=== PATIENT | female | born 2000 | race Caucasian/White ===

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

== ENCOUNTER 2019-02-06 03:14 | Emergency (ER) | payer OTHER ==
[~2019-02-06] VITALS: Ht 157.5 cm; Wt 63.7 kg
[~2019-02-06 03:14] MED LIST changes: +CYCLOBENZAPRINE5 MG PO
--- OUTSIDE RECORDS SUMMARY | 2019-02-06 03:16 | XMS ---
PreManage Notification: CARTER FERNANDO Security Computer Salesperson Retail Events No recent Security Events currently on file CRITERIA MET - Group Notification - [facility] - Has Care Guidelines CARE PROVIDERS JESUS MONIQUE [facility] 09/21/2018-Neha Crandall PHONE: Unknown AVIVA BOLIVAR Nurse Practitioner: Women's Health 02/17/2018-Current PHONE: [phone] ALEAH MELARA Primary Care 10/28/2016-Current PHONE: [phone] Guidelines Source: [facility] Guidelines Date: 02/19/2017 Care Coordination: ENCOURAGE PATIENT TO USE PCP FOR FOLLOW UP AND NON-EMERGENT PROBLEMS. GIVE PATIENT THIS STRAIGHTEDGE MAN NAME AND NUMBER FOR HELP OR QUESTIONS. JENNIFER FRANCIS FLIGHT ATTENDANT/INFLIGHT MANAGERQUEEN'S COUNSEL, [facility] [phone] Additional care guidelines exist for the following facilities: [facility] ( 12/06/2018 ) Care History Medical/Surgical 12/06/[address] [facility] - [facility] Case Management referral made. Patient has [employer] insurance and is utilizing the ED for mental health services. 01/19/[address] [facility] - [facility] referred patient to [facility]. Deedee the RN that runs the program can be contacted at [phone]. Care Recommendation: This patient has had 5 or more Emergency Department visits in the last 12 months.\T\nbsp; Patient requires education on the scope and purpose of the ED as an acute care provider not a Primary Care Provider and should not be utilized for chronic conditions.\T\nbsp; If patient returns to ED please contact Community Health WorkerCarlota at [phone]. These are guidelines and the provider should exercise clinical judgment when providing care. E.D. VISIT COUNT (12 MO.) 5 [facility] TOTAL 5 NOTE: Visits indicate total known visits. ED/UCC VISIT TRACKING (12 MO.) 02/06/2019 03:15 [facility] [place] TYPE: Emergency COMPLAINT: - FALL/LEFT FOOT LACERATION 12/19/2018 15:59 [facility] [place] TYPE: Emergency COMPLAINT: - ABSCESS ON BOTTOM DIAGNOSES: - Other skin changes 12/06/2018 01:13 [facility]ram[facility] [place] TYPE: Emergency [...] specified as acute or chronic - Other rn long term care (current) drug therapy - Allergy status to penicillin - Diseases of the respiratory system complicating , first trimester - Personal history of nicotine dependence - Allergy status to narcotic agent status - Bee allergy status - Vomiting, unspecified - Vomiting of , unspecified - 11 weeks gestation of INPATIENT VISIT TRACKING (12 MO.) 09/09/2018 00:03 [facility]ramanian [place] TYPE: [facility] COMPLAINT: - INDUCTION DIAGNOSES: - Diseases of [...] B carrier state complicating childbirth - Other rn long term care (current) drug therapy - Abnormality in heart rate and rhythm complicating labor and delivery - 40 weeks gestation of [email or web address]
[2019-02-06] MEDS ORDERED: AVIANE1 EACH PO (03:53)
[2019-02-06] MEDS ORDERED: NEXPLANON68 MG SUB-Q (03:54)
== END 2019-02-06 04:02 | disposition home or self-care (01) ==
LOC: ED 03:14
DX: S80.212A Abrasion, left knee, initial encounter (principal); S60.511A Abrasion of right hand, initial encounter; F31.9 Bipolar disorder, unspecified; F32.9 Major depressive disorder, single episode, unspecified; Z90.89 Acquired absence of other organs; Z88.0 Allergy status to penicillin; Z91.030 Bee allergy status; Z88.1 Allergy status to other antibiotic agents; Z88.5 Allergy status to narcotic agent; Z88.8 Allergy status to other drugs, medicaments and biological substances; W18.30XA Fall on same level, unspecified, initial encounter
CPT/HCPCS: 99283

== ENCOUNTER 2019-07-30 20:14 | Emergency (ER) | payer OTHER ==
[~2019-07-30] VITALS: Ht 157.5 cm; Wt 63.7 kg
[~2019-07-30 20:14] MED LIST changes: +AVIANE1 EACH PO; +NEXPLANON68 MG SUB-Q
== END 2019-07-30 22:16 | disposition home or self-care (01) ==
LOC: ED 20:14
DX: R11.2 Nausea with vomiting, unspecified (principal); Z88.0 Allergy status to penicillin; Z91.030 Bee allergy status; Z88.1 Allergy status to other antibiotic agents; Z88.5 Allergy status to narcotic agent; Z79.899 Other long term (current) drug therapy
CPT/HCPCS: 80053; 81001; 83735; 84703; 85025; 96361; 96374; 99284-25; J2405; J7030

== ENCOUNTER 2019-08-14 23:26 | Emergency (ER) | payer OTHER ==
[~2019-08-14] VITALS: Ht 157.5 cm; Wt 63.7 kg
--- OUTSIDE RECORDS SUMMARY | ~2019-08-14 | XMS | Encounter Summary ---
Demographics + + + | Address | [address] | | | [place] [address] | + + + | Home Phone | | + + + | Preferred Language | Unknown | + + + | Marital Status | Single | + + + | Congregation Affiliation | NRP | + + + | Race | White | + + + | Ethnic Group | Not or | + + + Author + + + | Organization | Unknown | + + + | Address | Unknown | + + + | Phone | Unavailable | + + + Support + + +---------+ + | Name | Relationship | Address | Phone | + + +---------+ + | Amparo De La Cruz | ECON | Unknown | | + + +---------+ + Care Team Providers + +------+ + | Care Or Scrub Tech Name | Role | Phone | + +------+ + | Unknown | PCP | Unavailable | + +------+ + Encounter Details +--------+--------+ + + + | Date | Type | Department | Care Team | Description | +--------+--------+ + + + | 05/09/ | Travel | | | | | 2019 | | | | | +--------+--------+ + + + Social History + +-------+ +--------+------+ | Tobacco Use | Types | Packs/Day | Years | Date | | | | | Used | | + +-------+ +--------+------+ | Never Assessed | | | | | + +-------+ +--------+------+ + +---+---+---+ | Smokeless Tobacco: | | | | | Never Used | | | | + +---+---+---+ + + +---------+ + | Alcohol Use | Drinks/Week | oz/Week | Comments | + + +---------+ + | Not Currently | | | | + + +---------+ + + + + | Sex Assigned at | Date Recorded | | | | + + + | Not on file | | + + + + + + + | Job Start Date | Occupation | Industry | + + + + | Not on file | Not on file | Not on file | + + + + + + + + | Travel History | Travel Start | Travel End | + + + + + + | No recent travel history available. | + + documented as of this encounter Plan of Treatment Not on filedocumented as of this encounter Visit Diagnoses Not on filedocumented in this encounter"
--- OUTSIDE RECORDS SUMMARY | ~2019-08-14 | XMS | Clinical Summary ---
Demographics + + + | Address | [address] | | | [place] [address] | + + + | Home Phone | | + + + | Preferred Language | Unknown | + + + | Marital Status | Single | + + + | Baptist Affiliation | Unknown | + + + | Race | Unknown | + + + | Ethnic Group | Unknown | + + + Author + + + | Author | [facility] (Historical as of | | | 04-01-19) | + + + | Organization | [facility] (Historical as of | | | 04-01-19) | + + + | Address | Unknown | + + + | Phone | Unavailable | + + + Support + + + + + | Name | Relationship | Address | Phone | + + + + + | Adelia Solano | ECON | [address] | | | | | [place], | | | | | [place] [address] | | + + + + + Care Team Providers + +------+ + | Care Social Media Campaign Manager Name | Role | Phone | + +------+ + | Apolinar Laughlin MD | PP | | + +------+ + Allergies + + + + + + | Active Allergy | Reactions | Severity | Noted | Comments | | | | | Date | | + + + + + + | Penicillins | Hives | High | 10/16/19 | | | | | | 16 | | + + + + + + Current Medications + + +-------+---------+------+------+-------+ | Prescription | Sig. | Disp. | Refills | Star | End | Statu | | | | | | t | Date | s | | | | | | Date | | | + + +-------+---------+------+------+-------+ | traMADol (ULTRAM) | Take 50 mg by mouth | | | | | Activ | | 50 MG tablet | every 6 (six) hours | | | | | e | | | as needed for Pain. | | | | | | + + +-------+---------+------+------+-------+ | albuterol | Take 1 ampule by | | | | | Activ | | (ACCUNEB) 1.25 | nebulization every 6 | | | | | e | | MG/3ML nebulizer | (six) hours as | | | | | | | solution | needed for Wheezing. | | | | | | + + +-------+---------+------+------+-------+ | ondansetron | Take 4 mg by mouth 3 | | | | | Activ | | (ZOFRAN) 4 MG tablet | (three) times daily | | | | | e | | | as needed for | | | | | | | | Nausea. | | | | | | + + +-------+---------+------+------+-------+ Active Problems Not on file Social History + +-------+ +--------+------+ | Tobacco Use | Types | Packs/Day | Years | Date | | | | | Used | | + +-------+ +--------+------+ | Never Smoker | | | | | + +-------+ +--------+------+ + + +---------+ + | Alcohol Use | Drinks/We | oz/Week | Comments | | | ek | | | + + +---------+ + | No | | | | + + +---------+ + + + + | Sex Assigned at | Date Recorded | | | | + + + | Not on file | | + + + Last Filed Vital Signs + + + + | Vital Sign | Reading | Time Taken | + + + + | Blood Pressure | 109/74 | 10/16/2015 3:26 PM PST | + + + + | Pulse | 89 | 10/16/2015 3:26 PM PST | + + + + | Temperature | 36.2 C (97.2 F) | 10/16/2015 1:24 PM PST | + + + + | Respiratory Rate | 18 | 10/16/2015 3:26 PM PST | + + + + | Oxygen Saturation | 99% | 10/16/2015 3:26 PM PST | + + + + | Inhaled Oxygen | - | - | | Concentration | | | + + + + | Weight | 59.2 kg (130 lb 8.2 | 10/16/2015 1:24 PM PST | | | oz) | | + + + + | Height | - | - | + + + + | Body Mass Index | - | - | + + + + Plan of Treatment Not on file Results Not on filefrom Last 3 Months Insurance + +--------+ +------+-------+ + | Payer | Benefi | Subscriber | Type | Phone | Address | | | t Plan | ID | | | | | | / | | | | | | | Group | | | | | + +--------+ +------+-------+ + | MEDICAID | MEDICA | [id number] | | | [address] | | | ID | | | | [place], [place] | | | [place] | | | | [address] | + +--------+ +------+-------+ + + +--------+ +--------+ + + | Guarantor Name | Accoun | Relation to | Date | Phone | Billing Address | | | t Type | Patient | of | | | | | | | | | | + +--------+ +--------+ + + | ADELIA SOLANO | Person | Mother | [birth year] | Work: | [address] | | | al/Deven | | 1973 | [phone] | [place] | | | josé miguel | | | [address]: | [address] | | | | | | | | | | | | | [phone] | | | | | | | [phone] | | + +--------+ +--------+ + +"
--- OUTSIDE RECORDS SUMMARY | ~2019-08-14 | XMS | Clinical Summary ---
Demographics + + + | Address | [address] | | | [place] [address] | + + + | Home Phone | | + + + | Preferred Language | Unknown | + + + | Marital Status | Single | + + + | Yazdanism Affiliation | Unknown | + + + | Race | Unknown | + + + | Ethnic Group | Unknown | + + + Author + + + | Author | [employer] [facility] (Historical as of | | | 04-01-19) | + + + | Organization | [facility] (Historical as of | | | 04-01-19) [...] [place], | | | | | [place] [address] | | + + + + + Care Team Providers + +------+ + | Care Pelletising Extruder Operator Name | Role | Phone | + [...] +------+-------+ + | MEDICAID | MEDICA | [id number] | | | [address] | | | ID | | | | [place], [place] | | | [place] | | | | [address] | + +--------+ +------+-------+ + + +--------+ [...] | | al/Deven | | 1973 | [phone] | [place] | | | josé miguel | | | [address]: | [address] | | | | | | | | | | | | | [phone] | | | | | | | [phone] | | + +--------+ +--------+ + +"
--- OUTSIDE RECORDS SUMMARY | ~2019-08-14 | XMS | Encounter Summary ---
Demographics + + + | Address | [address] | | | [place] [address] | + + + | Home Phone | | + + + | Preferred Language | Unknown | + + + | Marital Status | Single | + + + | Cheondoism Affiliation | Unknown | + + + | Race | Unknown | + + + | Ethnic Group | Unknown | + + + Author + + + | Author | [facility] | | | and [place] | + + + | Organization | [facility] | | | and [place] | + + + | Address | Unknown | + + + | Phone | Unavailable | + + + Support + + +---------+ + | Name | Relationship | Address | Phone | + + +---------+ + | Amparo Dorothy | ECON | Unknown | | + + +---------+ + Care Team Providers + +------+ + | Care Belt And Link Assembly Supervisor Name | Role | Phone | + +------+ + PCP | Unavailable | + +------+ + Encounter Details +--------+ + + + + | Date | Type | Department | Care Team | Description | +--------+ + + + + | 10/15/ | Emergency | [facility] | Raúl Kulkarni, | Chronic pelvic pain | | 2016 | | [facility] | [address] | in female; Left | | | | EMERGENCY CENTER | [place], [place] | ovarian cyst | | | | [address] | [address] | | | | | [facility] [place] | | | | | | [address] | | | | | | [phone] | | | +--------+ + + + [...] | + +--------+ + + + | US PELVIS | Routin | 10/16/2015 | | Results for this | | TRANSABDOMINAL | e | 3:09 PM | | procedure are in the | | | | PST | | results section. | + +--------+ + + + | URINALYSIS, REFLEX | Routin | 10/16/2015 | | Results for this | | MICROSCOPIC AND/OR | e | 2:03 PM | | procedure are in the | | CULTURE | | PST | | results section. | + +--------+ + + + documented in this encounter Results US Pelvis Transabdominal (10/16/2015 3:09 PM PST) + + | Specimen | + + | | + + + + + | Impressions | Performed At | + + + | 1. There is a simple appearing cyst of the left ovary. 2. No | | | acute process is identified involving the uterus or ovaries. | | | | | + + + + + + | Narrative | Performed At | + + + | [facility] 1999 US PELVIS TRANSABDOMINAL 10/16/2015 | | | 3:09 PM HISTORY: Pelvic pain with history of ovarian cysts, left | | | lower quadrant COMPARISON: None. TECHNIQUE: Transabdominal | | | pelvic ultrasound performed, grayscale and color flow evaluation. | | | FINDINGS: The bladder has a normal morphology. No focal bladder wall | | | thickening is present. The uterus appears mildly anteverted in | | | position measuring 7.1 x 3.1 x 4.2 cm. No abnormal vascularity of the | | | endometrial complex is noted which measures 8.3 mm in thickness. The | | | right ovary measures 2.4 x 1.9 x 3.6 cm. Normal arterial and venous | | | waveforms are documented. The left ovary measures 2.5 x 4.4 x 4.1 cm. | | | Normal arterial and venous waveforms are seen in the left ovary. There | | | is a round anechoic appearing structure within the left ovary | | | probably reflective of a simple cyst which requires no further | | | follow-up. There is no free fluid in the pelvis. | | + + + + + | Procedure Note | + + | Gary, Rad Conversion - 03/30/2019 5:46 PM PDT [facility] NESS1999US PELVIS | | TRANSABDOMINAL10/16/2015 3:09 PM HISTORY: Pelvic pain with history of ovarian cysts, left | | lower quadrant COMPARISON: None. TECHNIQUE: Transabdominal pelvic ultrasound performed, | | grayscale and color flow evaluation. FINDINGS: The bladder has a normal morphology. No | | focal bladder wall thickening is present. The uterus appears mildly anteverted in | | position measuring 7.1 x 3.1 x 4.2 cm. No abnormal vascularity of the endometrial | | complex is noted which measures 8.3 mm in thickness. The right ovary measures 2.4 x 1.9 | | x 3.6 cm. Normal arterial and venous waveforms are documented. The left ovary measures | | 2.5 x 4.4 x 4.1 cm. Normal arterial and venous waveforms are seen in the left ovary. | | There is a round anechoic appearing structure within the left ovary probably reflective | | of a simple cyst which requires no further follow-up. There is no free fluid in the | | pelvis. IMPRESSION: 1. There is a simple appearing cyst of the left ovary.2. No acute | | process is identified involving the uterus or ovaries. | |appearing structure within the left ovary probably reflective of a simple cyst which requir es no further follow-up. There is no free fluid in the pelvis. | | | |IMPRESSION: | |1. There is a simple appearing cyst of the left ovary. | |2. No acute process is identified involving the uterus or ovaries. | | | | | + + Urinalysis, Reflex Microscopic and/or Culture (10/16/2015 2:03 PM PST) + + + + + + | Component | Value | Ref Range | Performed | Pathologist | | | | | At | Signature | + + + + + + | Color | STRAWComment: Testing | | EXTERNAL | | | | performed at [facility];[address] | | LAB | | | | [address];[place] | | | | | | [address] | | | | + + + + + + | Clarity | CLEARComment: Testing | | EXTERNAL | | | | performed at [facility];[address] | | LAB | | | | [address];[place] | | | | | | [address] | | | | + + + + + + | Specific | 1.008Comment: Testing | 1.002 - 1.030 | EXTERNAL | | | [place] | performed at [facility];[address] | | LAB | | | | [address];[place] | | | | | | [address] | | | | + + + + + + | Leukocyte | NEGATIVEComment: Testing | | EXTERNAL | | | Esterase, | performed at [facility];[address] | | LAB | | | Urine | [address];[place] | | | | | | [address] | | | | + + + + + + | Nitrite, | NEGATIVEComment: Testing | | EXTERNAL | | | Urine | performed at [facility];[address] | | LAB | | | | [address];[place] | | | | | | [address] | | | | + + + + + + | Urobilinoge | NORMALComment: Testing | mg/dL | EXTERNAL | | | n, Urine | performed at [facility];[address] | | LAB | | | | [address];[place] | | | | | | [address] | | | | + + + + + + | Protein, | NEGATIVEComment: Testing | mg/dL | EXTERNAL | | | Urine | performed at [facility];[address] | | LAB | | | | [address];[place] | | | | | | [address] | | | | + + + + + + | pH, Urine | 6.0Comment: Testing | 5.0 - 8.0 | EXTERNAL | | | | performed at [facility];[address] | | LAB | | | | [address];[place] | | | | | | [address] | | | | + + + + + + | Blood, | MODERATE (A)Comment: | | EXTERNAL | | | Urine | Testing performed at | | LAB | | | | [facility];[address];[place] [address] | | | | + + + + + + | Ketones | NEGATIVEComment: Testing | mg/dL | EXTERNAL | | | | performed at [facility];[address] | | LAB | | | | [address];[place] | | | | | | [address] | | | | + + + + + + | Bilirubin, | NEGATIVEComment: Testing | | EXTERNAL | | | Urine | performed at [facility];[address] | | LAB | | | | [address];[place] | | | | | | [address] | | | | + + + + + + | Glucose, | NEGATIVEComment: Testing | mg/dL | EXTERNAL | | | Urine | performed at [facility];[address] | | LAB | | | | [address];[place] | | | | | | [address] | | | | + + + + + + | WBC, UA | NONE SEENComment: | 0 - 5 /hpf | EXTERNAL | | | | Testing performed at | | LAB | | | | [facility];[address];[place] [address] | | | | + + + + + + | RBC, UA | 3-5Comment: Testing | 0 - 5 /hpf | EXTERNAL | | | | performed at [facility];[address] | | LAB | | | | [address];[place] | | | | | | [address] | | | | + + + + + + | Bacteria, | 1+ (A)Comment: Testing | | EXTERNAL | | | UA | performed at [facility];[address] | | LAB | | | | [address];[place] | | | | | | [address] | | | | + + + + + + | Epithelial | 3-5Comment: Testing | /lpf | EXTERNAL | | | Cells | performed at [facility];[address] | | LAB | | | | [address];[place] | | | | | | [address] | | | | + + + + + + | MUCUS UA | 1+Comment: Testing | | EXTERNAL | | | | performed at [facility] | | LAB | | | | [address];[place] | | | | | | [address] | | | | + + + + + + + + | Specimen | + + | | + + + +---------+ + + | Performing | Address | City/State/Zipcode | Phone Number | | Organization | | | | + +---------+ + + | EXTERNAL LAB | | | | + +---------+ + + documented in this encounter Visit Diagnoses + + | Diagnosis | + + | Chronic pelvic pain in female Unspecified symptom associated with female genital | | organs | + + | Left ovarian cyst Other and unspecified ovarian cyst | + + documented in this encounter"
--- OUTSIDE RECORDS SUMMARY | ~2019-08-14 | XMS | Encounter Summary ---
Demographics + + + | Address | [address] | | | [place] [address] | + + + | Home Phone | | + + + | Preferred Language | Unknown | + + + | Marital Status | Single | + + + | Holiness Affiliation | NRP | + + + [...] Team Providers + +------+ + | Care Brewery Pumper Name | Role | Phone | + [...]
--- OUTSIDE RECORDS SUMMARY | ~2019-08-14 | XMS | Encounter Summary ---
Demographics + + + | Address | [address] | | | [place] [address] | + + + | Home Phone | | + + + | Preferred Language | Unknown | + + + | Marital Status | Single | + + + | Jainism Affiliation | Unknown | + + + | Race | Unknown | + + + | Ethnic Group | Unknown | + + + Author + + + | Author | [facility] | | | and [place] | + + + | Organization | [facility] | | | and [...] Team Providers + +------+ + | Care Powder Expert Name | Role | Phone | [...] | | | [address] | [address] | | | | | [facility] [place] | | | | | | [address] | | | | | | [phone] | | | +--------+ + + + [...] EXTERNAL | | | | performed at [facility];[address] | | LAB | | | | [address];[place] | | | | | | [address] | | | | + + + + + + | Clarity | CLEARComment: Testing | | EXTERNAL | | | | performed at [facility];[address] | | LAB | | | | [address];[place] | | | | | | [address] | | | | + + + + + + | Specific | 1.008Comment: Testing | 1.002 - 1.030 | EXTERNAL | | | [place] | performed at [facility];[address] | | LAB | | | | [address];[place] | | | | | | [address] | | | | + + + + + + | Leukocyte | NEGATIVEComment: Testing | | EXTERNAL | | | Esterase, | performed at [facility];[address] | | LAB | | | Urine | [address];[place] | | | | | | [address] | | | | + + + + + + | Nitrite, | NEGATIVEComment: Testing | | EXTERNAL | | | Urine | performed at [facility];[address] | | LAB | | | | [address];[place] | | | | | | [address] | | | | + + + + + + | Urobilinoge | NORMALComment: Testing | mg/dL | EXTERNAL | | | n, Urine | performed at [facility];[address] | | LAB | | | | [address];[place] | | | | | | [address] | | | | + + + + + + | Protein, | NEGATIVEComment: Testing | mg/dL | EXTERNAL | | | Urine | performed at [facility];[address] | | LAB | | | | [address];[place] | | | | | | [address] | | | | + + + + + + | pH, Urine | 6.0Comment: Testing | 5.0 - 8.0 | EXTERNAL | | | | performed at [facility];[address] | | LAB | | | | [address];[place] | | | | | | [address] | | | | + + + + + + | Blood, | MODERATE (A)Comment: | | EXTERNAL | | | Urine | Testing performed at | | LAB | | | | [facility];[address];[place] [address] | | | | + + + + + + | Ketones | NEGATIVEComment: Testing | mg/dL | EXTERNAL | | | | performed at [facility];[address] | | LAB | | | | [address];[place] | | | | | | [address] | | | | + + + + + + | Bilirubin, | NEGATIVEComment: Testing | | EXTERNAL | | | Urine | performed at [facility];[address] | | LAB | | | | [address];[place] | | | | | | [address] | | | | + + + + + + | Glucose, | NEGATIVEComment: Testing | mg/dL | EXTERNAL | | | Urine | performed at [facility];[address] | | LAB | | | | [address];[place] | | | | | | [address] | | | | + + + + + + | WBC, UA | NONE SEENComment: | 0 - 5 /hpf | EXTERNAL | | | | Testing performed at | | LAB | | | | [facility];[address];[place] [address] | | | | + + + + + + | RBC, UA | 3-5Comment: Testing | 0 - 5 /hpf | EXTERNAL | | | | performed at [facility];[address] | | LAB | | | | [address];[place] | | | | | | [address] | | | | + + + + + + | Bacteria, | 1+ (A)Comment: Testing | | EXTERNAL | | | UA | performed at [facility];[address] | | LAB | | | | [address];[place] | | | | | | [address] | | | | + + + + + + | Epithelial | 3-5Comment: Testing | /lpf | EXTERNAL | | | Cells | performed at [facility];[address] | | LAB | | | | [address];[place] | | | | | | [address] | | | | + + + + + + | MUCUS UA | 1+Comment: Testing | | EXTERNAL | | | | performed at [facility] | | LAB | | | | [address];[place] | | | | | | [address] | | | | + + + [...]
--- OUTSIDE RECORDS SUMMARY | ~2019-08-14 | XMS | Encounter Summary ---
Demographics + + + | Address | [address] | | | [place] [address] | + + + | Home Phone | | + + + | Preferred Language | Unknown | + + + | Marital Status | Single | + + + | Synagogue Affiliation | NRP | + + + | Race | White | + + + | Ethnic Group | Not or | + + + Author + + + | Author | [facility] | + + + | Organization | [facility] | + + + | Address | Unknown | + + + | Phone | Unavailable | + + + Support + + +---------+ + | Name | Relationship | Address | Phone | + + +---------+ + | Amparo De La Cruz | ECON | Unknown | | + + +---------+ + Care Team Providers + +------+ + | Care Policy Services Representative Name | Role | Phone | + [...] + + | 05/09/ | Emergency | [facility] Emergency | Reanna Tracey, | | | 2018 | | Department [address] | MD [address] [facility] | | | | | [facility] | [facility] | | | | | [facility] | [place], [place] | | | | | [place], [place] | [address] | | | | | [address] | [phone] | | | | | [phone] | | | +--------+ + + + [...] Discharge Instructions Instructions Floyd Aldrich MD - 05/09/2019You were seen in the ER after an [...] in the ER. The number for the [facility] Intensive Care Unit Ergonomist is [phone] documented in this encounter Plan of Treatment [...] At | + + + | COLLECTIVE?NOTIFICATION?05/09/2019 19:11?ROSE FERNANDO?MRN: | COLLECTIVE | | [id number] Criteria Met 5 Visits In 12 Months Has | MEDICAL | | Guidelines Security and Safety No recent Security Events | [employer] | | currently on file ED Care Guidelines from [facility] | | | Last Updated: 12/06/18 1:12 PM Care Coordination: Currently | | | engaged in mental health services with [employer].? Please contact | | | [employer] for mental health concerns.? [place] office: [phone]. | | | These are guidelines and the provider should exercise clinical | | | judgment when providing care. Care History Medical/Surgical | | | 02/08/19 12:00 AM [facility] PER DONTE AT | | | [facility] CASE MANAGEMENT-PATIENT HAS MET GOALS WITH THEM AND IS BEING | | | CASE MANAGED BY RENU CARE TEAM INSPECTOR RUBBER STAMP DIE. 12/06/18 | | | 12:00 AM [facility] | | | referral made. [facility] and is utilizing the ED | | | for mental health services. 01/19/18 12:00 AM [facility] | | | Hospital CHW referred patient to Todd Mariam Nurse | | | Partnership Program. Deedee the RN that runs the program can be | | | contacted at [phone]. Care Recommendation: This patient has | | [...] | | contact Community Health WorkerCarlota at [phone]. These are | | | guidelines and the provider should exercise clinical judgment when | | | providing care. Prescription Drug Report (12 Mo.) Rx Details | | | Fill Date Drug Description Qty. Prescriber MED 2018-09-13 | | | OXYCODONE-ACETAMINOPHEN 5-325 JESUS MONIQUE M.D. 2 30 Rx | | | Summary Metric Count CS II-V Rx 1 CS-II Rx 1 Quantity Dispensed | | | 28 Unique Prescribers 1 [facility] Pharm[facility] 1 Benzos 0 Opioids | | | 1 Long Acting Opioids 0 E.D. Visit Count (12 mo.) | | | Facility Visits [facility] [address] | | | [place] [address] Total 5 Note: Visits indicate total known | | | visits. Recent Emergency Department Visit Summary Date | | | Facility City State Type Diagnoses or Chief Complaint May 09, 2019 | | | [facility] [place] Emergency | | | 10,800. Back Pain 18,400. Abrasion of unspecified back wall of | | | thorax, initial encounter Feb 06, 2019 [facility] [place] | | | [place] Emergency [...] encounter December 19, | | | 2018 [facility] [place] Emergency Other skin changes | | | Dec 06, 2018 [facility] [place] Emergency | | | [...] | | | Sep 20, 2018 [facility] [place] Emergency | | | [...] Diagnoses or Chief Complaint [facility] 09, [facility] [place] [facility] 40 weeks gestation of | | | Abnormality in heart rate and rhythm complicating labor and | | | delivery Other immediate hemorrhage | | | Streptococcus B carrier state complicating Maternal | | | care for high head at term, not applicable or unspecified Single | | | live Post-traumatic stress disorder, unspecified | | | Other halfway (current) drug therapy Streptococcus B carrier | [...] 17, | | | 2018 - Current [facility] Portal This patient has registered | | | at the [facility] [place] [facility] | | | For more information visit: | | | [email or web address] | | | [email or web address] PLEASE NOTE: 1. Any care recommendations [...] or completeness of information provided. ? 2019 [employer] | | | [facility]. - [email or web address] | | + + + + + | Procedure Note | + + | Service Account, Rtf Results Inbound - 05/09/2019 8:06 PM PDT Formatting of this | | note might be different from the original.COLLECTIVE?NOTIFICATION?05/09/2019 | | 19:11?ROSE FERNANDO? Met 5 Visits In 12 Months Has | | GuidelinesSecurity and SafetyNo recent Security Events currently on fileED Care | | Guidelines from [employer] - Mara Updated: 12/06/18 1:12 PM Care | | Coordination:Currently engaged in mental health services with [employer].? Please contact | | [employer] for mental health concerns.? [place] office: [phone].These are | | guidelines and the provider should exercise clinical judgment when providing care.Care | | HistoryMedical/Surgical02/08/19 12:00 AM [facility] | | CASE MANAGEMENT-PATIENT HAS MET GOALS WITH THEM AND IS BEING CASE MANAGED BY HETAL AND | | RY CARE TEAM INSPECTOR RUBBER STAMP DIE.12/06/18 12:00 AM [facility] Case | | Management referral made. Patient has [facility] insurance and is utilizing the ED for mental | | health services.01/19/18 12:00 AM [facility] CHW referred patient to | | Leena Becerra Nurse Partnership Program. Deedee the RN that runs the program can be | | contacted at [phone].Care Recommendation:This patient has had 5 or more Emergency | | Department visits in the last 12 months.? Patient requires education on the scope and | | purpose of the ED as an acute care provider not a Primary Care Provider and should not | | be utilized for chronic conditions.?If patient returns to ED please contact Community | | Health WorkerCarlota at [phone].These are guidelines and the provider should | [...] 0 E.D. Visit Count (12 mo.)Facility Visits [place] | | [facility] 1 [facility] 4 Total 5 Note: Visits | | indicate total known visits. Recent Emergency Department Visit SummaryDate Facility | | City State Type Diagnoses or Chief Complaint May 09, 2019 [facility] | | [place] Emergency 10,800. Back Pain 18,400. Abrasion of unspecified | | back wall of thorax, initial encounter Feb 06, 2019 [facility] [place] | | Emergency Major [...] lower leg, initial encounter December 19, [address] [facility] [address] | | [place] Emergency Other skin changes Dec 06, 2018 [facility] [place] Emergency Allergy status to penicillin Acquired absence of other organs | | Allergy status to narcotic agent status Unspecified asthma, uncomplicated | | Post-traumatic stress disorder, unspecified Other insect allergy status Panic | | disorder [episodic paroxysmal anxiety] Other allergy status, other than to drugs and | | biological substances Bipolar disorder, unspecified Sep 20, 2018 [facility] [place] Emergency Allergy [...] Diagnoses or Chief Complaint Sep 09, 2018 [facility] [place] [facility] 40 weeks gestation of Abnormality in | | heart rate and rhythm complicating labor and delivery Other immediate | | hemorrhage Streptococcus B carrier state complicating Maternal care for | | high head at term, not applicable or unspecified Single live Post-traumatic | | stress disorder, unspecified Other joint terminal attack controller (current) drug therapy Streptococcus | | B carrier state complicating childbirth Other mental disorders complicating | | childbirth Care TeamProvider Specialty Phone Fax Service Dates JESUS MONIQUE, | | Neha LOERA M.D. Corner Brace Block Machine Operator Sep 21, 2018 - Current AVIVA BOLIVAR, NP- | | Nurse Practitioner: Women's Health Feb 17, 2018 - Current | | [employer]enoOneThis patient has registered at the [facility] [place] | | Emergency Department For more information visit: | | [email or web address] PLEASE | | NOTE: 1. Any care [...] to the | | limitations of applicable KnowRe Policies. 3. You should consult directly with | | the organization that provided a care guideline or other clinical history with any | | questions about additional information or accuracy or completeness of information | | provided.? 2019 [employer] - [email or web address] | | | |Feb 06, 2019 [facility] [place] Emergency | | Major depressive disorder, [...] | | | |December 19, 2018 [facility] [place] Emergency | | Other skin changes | | | |Dec 06, 2018 [facility] [place] Emergency | | Allergy [...] unspecified | | | |Sep 20, 2018 [facility] [place] Emergency | | Allergy [...] or Chief Complaint | |Sep 09, 2018 [facility] [place] [facility] | | 40 weeks gestation of | | Abnormality in heart rate and rhythm complicating labor and delivery | | Other immediate hemorrhage | | Streptococcus B carrier state complicating | | Maternal care for high head at term, not applicable or unspecified | | Single live | | Post-traumatic stress disorder, unspecified | | Other joint terminal attack controller (current) drug therapy | | Streptococcus B carrier state complicating childbirth | | Other mental disorders complicating childbirth | | | | | | | |Care Team | |Provider Specialty Phone Fax Service Dates | |JESUS MONIQUE M.D. JOHN, M.D. Corner Brace Block Machine Operator Sep 21, 2018 - Current | |AVIVA BOLIVAR, KATTY- Nurse Practitioner: Women's Health Feb 17, 2018 - Current | | | |KnowRe Portal | |This patient has registered at the [facility] [place] [facility] t | |For more information visit: [email or web address] | |PLEASE NOTE: | | 1. Any [...] information provided. | | | |? 2019 [employer]. - [email or web address] | + + + + + + + | Performing | Address | City/State/Zipcode | Phone Number | | Organization | | | | + + + + + | [facility] | [address], | [place], [place] | [phone] | | [employer] | [address] | [address] | | + + + + + documented in this encounter Visit Diagnoses + + | Diagnosis | + + | Abrasion of back, unspecified laterality, initial encounter - Primary | + + documented in this encounter"
--- OUTSIDE RECORDS SUMMARY | ~2019-08-14 | XMS | Clinical Summary ---
Demographics + + + | Address | [address] | | | [place] [address] | + + + | Home Phone | | + + + | Preferred Language | Unknown | + + + | Marital Status | Single | + + + | Buddhist Affiliation | NRP | + + + | Race | White | + + + | Ethnic Group | Not or | + + + Author + + + | Author | [facility] | + + + | Organization | [facility] | + + + | Address | Unknown | + + + | Phone | Unavailable | + + + Support + + +---------+ + | Name | Relationship | Address | Phone | + + +---------+ + | Amparo De La Cruz | ECON | Unknown | | + + +---------+ + Care Team Providers + +------+ + | Care Machine Operator Helper Name | Role | Phone | + +------+ + | Unknown | PCP | Unavailable | + +------+ + Source Comments ZENOBIA is fully live on both [facility] Ambulatory and [facility] InPatient.[facility] Allergies + + + + + + | Active Allergy | Reactions | Severity | Noted | Comments | | | | | Date | | + + + + + + | Penicillin | Rash | | 05/09/20 | | | | | | 19 | | + + + + + + Medications No known medications Active Problems Not on file Social History [...] recent travel history available. | + + Last Filed Vital Signs + [...] filefrom Last 3 Months Insurance + +--------+ +--------+-------+---------+--------+ | Payer | Benefi | Subscriber | Effect | Phone | Address | Type | | | t Plan | ID | julio | | | | | | / | | Dates | | | | | | Group | | | | | | + +--------+ +--------+-------+---------+--------+ | BI TECHNICAL LEAD MEDICAID | BI TECHNICAL LEAD | xxxxxxxx | Effect | | | Medica | | | [place] | | julio | | | id | | | [place] | | for | | | | | | | | all | | | | | | | | dates | | | | + +--------+ +--------+-------+---------+--------+ + +--------+ +--------+ + + | Guarantor Name | Accoun | Relation to | Date | Phone | Billing Address | | | t Type | Patient | of | | | | | | | | | | + +--------+ +--------+ + + | Rose Marrufo | Person | Self [birth year] | [address] | | | al/Fam | | 2001 | [phone] | [place] | | | josé miguel | | | [address] (Home) | [phone] | + +--------+ +--------+ + +"
--- OUTSIDE RECORDS SUMMARY | ~2019-08-14 | XMS | Clinical Summary ---
Demographics + + + | Address | [address] | | | [place] [address] | + + + | Home Phone | | + + + | Preferred Language | Unknown | + + + | Marital Status | Single | + + + | Baptism Affiliation [...] Team Providers + +------+ + | Care Piper Helper Name | Role | Phone | + +------+ + | Unknown | PCP | Unavailable | + +------+ + Source Comments ZENOBIA is fully live on both [facility] and [facility] InPatient.[facility] Allergies + + + + + + [...] | | | + +--------+ +--------+-------+---------+--------+ | EKG/ECG TECHNICIAN MEDICAID | EKG/ECG TECHNICIAN | xxxxxxxx | Effect | | | [...] mig[place] | | | [address] (Home) | [id number] | + +--------+ +--------+ + +"
--- OUTSIDE RECORDS SUMMARY | ~2019-08-14 | XMS | Clinical Summary ---
Demographics + + + | Address | [address] | | | [place] [address] | + + + | Home Phone | | + + + | Preferred Language | Unknown | + + + | Marital Status | Single | + + + | Mormon Affiliation | Unknown | + + + | Race | Unknown | + + + | Ethnic Group | Unknown | + + + Author + + + | Author | [facility] | | | and [place] | + + + | Organization | [facility] | | | and [...] Team Providers + +------+ + | Care Liquor Merchant Name | Role | Phone | + [...] + + Plan of Treatment + + + + + | Health Maintenance | Due Date | Last Done | Comments | + + + + + | Well Child Check | | | | | | 3 | | | + + + + + | Vaccine: | | | | | Dtap/Tdap/Td (1 - | 1 | | | | Tdap) | | | | + + + + + | Vaccine: HPV (1 - | | | | | Female 2-dose | 1 | | | | series) | | | | + + + + + | Vaccine: Influenza | | | | | (#1) | 9 | | | + + + + + Results Not on filefrom Last 3 Months"
--- OUTSIDE RECORDS SUMMARY | ~2019-08-14 | XMS | Clinical Summary ---
Demographics + + + | Address | [address] | | | [place] [address] | + + + | Home Phone | | + + + | Preferred Language | Unknown | + + + | Marital Status | Single | + + + | Rastafari Affiliation | Unknown | + + + [...] Team Providers + +------+ + | Care Emergency Department Rn Name | Role | Phone | + [...]
--- OUTSIDE RECORDS SUMMARY | ~2019-08-14 | XMS | Encounter Summary ---
Demographics + + + | Address | [address] | | | [place] [address] | + + + | Home Phone | | + + + | Preferred Language | Unknown | + + + | Marital Status | Single | + + + | Rastafarian Affiliation | NRP | + + + | Race | White | + + + | Ethnic Group | Not or | + + + Author + + + | Author | [facility] | + + + | Organization | [facility] | + + + | Address | Unknown | + + + | Phone | Unavailable | + + + Support + + +---------+ + | Name | Relationship | Address | Phone | + + +---------+ + | Amparo De La Cruz | ECON | Unknown | | + + +---------+ + Care Team Providers + +------+ + | Care Recreation Assistant Name | Role | Phone | [...] + + | 05/09/ | Emergency | [facility] Emergency | Reanna Tracey, | | | 2018 | | Department [address] | MD [address] [facility] | | | | | [facility] | [facility] | | | | | [facility] | [place], [place] | | | | | [place], [place] | [address] | | | | | [address] | [phone] | | | | | [phone] | | | +--------+ + + + [...] the [facility] Intensive Care Unit Space Controller is [phone] documented in this encounter Plan of Treatment [...] COLLECTIVE?NOTIFICATION?05/09/2019 19:11?ROSE FERNANDO?MRN: | COLLECTIVE | | [id number] Criteria Met 5 Visits In 12 Months Has | MEDICAL | | Guidelines Security and Safety No recent Security Events | TECH[employer]OLOGIES | | currently on file ED Care Guidelines from [facility] | | | Last Updated: 12/06/18 1:12 PM Care Coordination: Currently | | | engaged in mental health services with [employer].? Please contact | | | [employer] for mental health concerns.? [place] office: [phone]. | | | These are guidelines and the provider should exercise clinical | | | judgment when providing care. Care History Medical/Surgical | | | 02/08/19 12:[address] [facility] PER DONTE AT | | | [facility] CASE MANAGEMENT-PATIENT HAS MET GOALS WITH THEM AND IS BEING | | | CASE MANAGED BY [employer] C[employer] TEAM MANUFACTURING TECHNOLOGY ANALYST. 12/06/18 | | | 12:[address] [facility] | | | referral made. [facility] and is utilizing the ED | | | for mental health services. 01/19/18 12:00 AM [facility] | | | Hospital [facility] referred patient to [facility] Nurse | | | Partnership Program. Deedee the RN that runs the program can be | | | contacted at [phone]. Care Recommendation: This patient has | | [...] | | contact Community Health WorkerCarlota at [phone]. These are | | | guidelines and [...] (12 mo.) | | | Facility Visits [facility] [address] | | | [place] [address] Total 5 Note: Visits indicate total known | | | visits. Recent Emergency Department Visit Summary Date | | | Facility City State Type Diagnoses or Chief Complaint May 09, 2019 | | | [facility] [place] Emergency | | | 10,800. Back Pain 18,400. Abrasion of unspecified back wall of | | | thorax, initial encounter Feb 06, 2019 [facility] [place] | | | [place] Emergency [...] encounter December 19, | | | 2018 [facility] [place] Emergency Other skin changes | | | Dec 06, 2018 [facility] [place] Emergency | | | [...] | | | Sep 20, 2018 [facility] [place] | | | [...] Diagnoses or Chief Complaint [facility] [place] [facility] [place] 40 weeks gestation of | | | Abnormality in heart rate and rhythm complicating labor and | | | delivery Other immediate hemorrhage | | | Streptococcus B carrier state complicating Maternal | | | care for high head at term, not applicable or unspecified Single | | | live Post-traumatic stress disorder, unspecified | | | Other retirement (current) drug therapy Streptococcus B carrier | [...] 17, | | | 2018 - Current [employer] This patient has registered | | | at the [facility] [place] Emergency Department | | | For more information visit: | | | [email or web address] | | | [email or web address] PLEASE NOTE: 1. Any care recommendations [...] or completeness of information provided. ? 2019 [employer] | | | [place]. - [email or web address] | | + + + + + | Procedure Note | + + | Service Account, Rtf Results Inbound - 05/09/2019 8:06 PM PDT Formatting of this | | note might be different from the original.COLLECTIVE?NOTIFICATION?05/09/2019 | | 19:11?ROSE FERNANDO? Met 5 Visits In 12 Months Has | | GuidelinesSecurity and SafetyNo recent Security Events currently on fileED Care | | Guidelines from [employer] - [place] Updated: 12/06/18 1:12 PM Care | | Coordination:Currently engaged in mental health services with [employer].? Please contact | | [employer] for mental health concerns.? [place] office: [phone].These are | | guidelines and the provider should exercise clinical judgment when providing care.Care | | HistoryMedical/Surgical02/08/19 12:[address] [facility] | | CASE MANAG[facility]-PATIENT HAS MET GOALS WITH THEM AND IS BEING CASE MANAGED BY HETAL AND | | RY CARE TEAM MANUFACTURING TECHNOLOGY ANALYST.12/06/18 12:[address] [facility] Case | | Management referral made. Patient has [facility] insurance and is utilizing the ED for mental | | health services.01/19/18 12:[address] [facility] CHW referred patient to | | [facility] Nurse Partnership Program. Deedee the RN that runs the program can be | | contacted at [phone].Care Recommendation:This patient has had 5 or more Emergency | | Department visits in the last 12 months.? Patient requires education on the scope and | | purpose of the ED as an acute care provider not a Primary Care Provider and should not | | be utilized for chronic conditions.?If patient returns to ED please contact Community | | Health WorkerCarlota at [phone].These are guidelines and the provider should | [...] 0 E.D. Visit Count (12 mo.)Facility Visits [place] | | [facility] [address] [facility] 4 Total 5 Note: Visits | | indicate total known visits. Recent Emergency Department Visit SummaryDate Facility | | City State Type Diagnoses or Chief Complaint May 09, 2019 [facility] | | [place] Emergency 10,800. Back Pain 18,400. Abrasion of unspecified | | back wall of thorax, initial encounter Feb 06, 2019 [facility] [place] | | Emergency Major [...] lower leg, initial encounter December 19, [address] [facility] [address] | | [place] Emergency Other skin changes [facility] 06, [facility] [place] [facility] Allergy status to penicillin Acquired absence of other organs | | Allergy status to narcotic agent status Unspecified asthma, uncomplicated | | Post-traumatic stress disorder, unspecified Other insect allergy status Panic | | disorder [episodic paroxysmal anxiety] Other allergy status, other than to drugs and | | biological substances Bipolar disorder, unspecified Sep 20, 2018 [facility] [place] Emergency Allergy [...] Diagnoses or Chief Complaint Sep 09, 2018 [facility] [place] [facility] 40 weeks gestation of Abnormality in | | heart rate and rhythm complicating labor and delivery Other immediate | | hemorrhage Streptococcus B carrier state complicating Maternal care for | | high head at term, not applicable or unspecified Single live Post-traumatic | | stress disorder, unspecified Other rodent exterminator (current) drug therapy Streptococcus | | B carrier state complicating childbirth Other mental disorders complicating | | childbirth Care TeamProvider Specialty Phone Fax Service Dates JESUS MONIQUE, | | Neha LOERA M.D. [employer] Sep 21, 2018 - Current AVIVA BOLIVAR, NP- | | Nurse Practitioner: Women's Health Feb 17, 2018 - Current | | [place] at the [facility] | | Emergency Department For more information visit: | | [email or web address] PLEASE | | NOTE: 1. Any care [...] to the | | limitations of applicable [employer] Policies. 3. You should consult directly with | | the organization that provided a care guideline or other clinical history with any | | questions about additional information or accuracy or completeness of information | | provided.? 2019 [employer]. - [email or web address] | | | |Feb 06, 2019 [place] [...] | | | |December 19, 2018 [facility] [place] Emergency | | Other skin changes | | | |Dec 06, 2018 [facility] [place] Emergency | | Allergy [...] unspecified | | | |Sep 20, 2018 [facility] [place] Emergency | | Allergy [...] or Chief Complaint | |Sep 09, 2018 [facility] [place] [facility] | | 40 weeks gestation of | | Abnormality in heart rate and rhythm complicating labor and delivery | | Other immediate hemorrhage | | Streptococcus B carrier state complicating | | Maternal care for high head at term, not applicable or unspecified | | Single live | | Post-traumatic stress disorder, unspecified | | Other rodent exterminator (current) drug therapy | | Streptococcus B carrier state complicating childbirth | | Other mental disorders complicating childbirth | | | | | | | |Care Team | |Provider Specialty Phone Fax Service Dates | |JESUS MONIQUE M.D. JOHN, M.D. [employer]er Sep 21, 2018 - Current | |AVIVA BOLIVAR, KATTY- Nurse Practitioner: Women's Health Feb 17, 2018 - Current | | | |[employer] Portal | |This patient has registered at the [facility] Emergency Departmen t | |For more information visit: [email or web address] | |PLEASE NOTE: | | 1. Any [...] information provided. | | | |? 2019 [employer]. - [email or web address] | + + + + + + + | Performing | Address | City/State/Zipcode | Phone Number | | Organization | | | | + + + + + | [facility] | [address], | [place], [place] | [phone] | | [employer] | [address] | [address] | | + + + + + documented in this encounter Visit Diagnoses + + | Diagnosis | + + | Abrasion of back, unspecified laterality, initial encounter - Primary | + + documented in this encounter"
== END 2019-08-15 00:56 | disposition home or self-care (01) ==
LOC: ED 23:26
DX: R42 Dizziness and giddiness (principal); F32.9 Major depressive disorder, single episode, unspecified; F41.9 Anxiety disorder, unspecified; Z88.0 Allergy status to penicillin; Z88.1 Allergy status to other antibiotic agents; Z88.5 Allergy status to narcotic agent; Z91.030 Bee allergy status; Z79.899 Other long term (current) drug therapy
CPT/HCPCS: 81001; 84703; 99284

== ENCOUNTER 2019-09-22 07:10 | Emergency (ER) | payer OTHER ==
[~2019-09-22] VITALS: Ht 157.5 cm; Wt 63.7 kg
== END 2019-09-22 07:27 | disposition home or self-care (01) ==
LOC: ED 07:10
DX: J02.9 Acute pharyngitis, unspecified (principal); Z53.20 Procedure and treatment not carried out because of patient's decision for unspecified reasons

== ENCOUNTER 2020-03-27 23:50 | Emergency (ER) | payer OTHER ==
[~2020-03-27] VITALS: Ht 157.5 cm; Wt 63.7 kg
--- OUTSIDE RECORDS SUMMARY | ~2020-03-27 | XMS | Encounter Summary ---
Demographics + + + | Address | [address] | | | [place] [address] | + + + | Home Phone | | + + + | Preferred Language | Unknown | + + + | Marital Status | | + + + | Faith Affiliation | NRP | + + + | Race | White | + + + | Ethnic Group | Not or | + + + Author + + + | Author | [facility] | + + + | Organization | [facility] | + + + | Address | Unknown | + + + | Phone | Unavailable | + + + Support + + +---------+ + | Name | Relationship | Address | Phone | + + +---------+ + | Amparo De La Cruz | ECON | Unknown | | + + +---------+ + Care Team Providers + +------+ + | Care Jail Officer Name | Role | Phone | + +------+ + | Aviva Bolivar NP | PCP | | + +------+ + Reason for Visit + + + | Reason | Comments | + + + | test | | + + + Encounter Details +--------+ + + + + | Date | Type | Department | Care Team | Description | +--------+ + + + + | 09/27/ | Emergency | [facility] Emergency | Cabrera Abbott, | | | 2020 | | Department [address] | [address] | | | | | [address] | [address] | | | | | [facility] | [place], [place] | | | | | [place], [place] | [address] | | | | | [address] | [phone] | | | | | [phone] | | | +--------+ + + + + Social History + +-------+ [...] + + documented as of this encounter Last Filed Vital Signs + + + + + | Vital Sign | Reading | Time Taken | Comments | + + + + + | Blood Pressure | 112/72 | 09/27/2019 5:20 PM | | | | | PST | | + + + + + | Pulse | 88 | 09/27/2019 5:20 PM | | | | | PST | | + + + + + | Temperature | 36.4 C (97.6 F) | 09/27/2019 5:20 PM | | | | | PST | | + + + + + | Respiratory Rate | 16 | 09/27/2019 5:20 PM | | | | | PST | | + + + + + | Oxygen Saturation | 100% | 09/27/2019 5:20 PM | | | | | PST | | + + + + + | Inhaled Oxygen | - | - | | | Concentration | | | | + + + + + | Weight | - | - | | + + + + + | Height | - | - | | + + + + + | Body Mass Index | - | - | | + + + + + documented in this encounter Discharge Instructions Instructions Cabrera Abbott MD - 09/27/2019You were seen today requesting test. We sent a blood test, it is not back yet, you will get a call back later with the results. In the future, consider using a urine test, these are a dollar and can be bought at the [employer] store. If it is negative and you were concerned it is a false negative test, you can wait 2 days to see if it is definitively negative or actually turns positive. AttachmentsThe following attachments cannot be sent through Care Everywhere.: Gene ral Info (Slovenian)documented in this encounter Plan of Treatment Not on filedocumented as of this encounter Procedures + +--------+ + + + | Procedure Name | Priori | Date/Time | Associated Diagnosis | Comments | | | ty | | | | + +--------+ + + + | HCG BETA QUANT, | Urgent | 09/27/2019 | | Results for this | | PLASMA | | 5:39 PM | | procedure are in the | | | | PST | | results section. | + +--------+ + + + | ED INFORMATION | Routin | 09/27/2019 | | Results for this | | EXCHANGE | e | 4:46 PM | | procedure are in the | | | | PST | | results section. | + +--------+ + + + documented in this encounter Results HCG BETA QUANT, PLASMA (09/27/2019 5:39 PM PST) + +-------+ + + + | Component | Value | Ref Range | Performed | Pathologist | | | | | At | Signature | + +-------+ + + + | HCG BETA, | <1 | No reference | [facility] | | | PLASMA | | ranges have | LABORATORY | | | | | been | SERVICES, | | | | | established | CORE | | | | | mIU/mL | | | + +-------+ + + + + + | Specimen | + + | Blood - Blood | | (substance) | + + + + + | Narrative | Performed At | + + + | HCG Reference ranges Males: <2 | [facility] | | mIU/mL Non- Females: <3 mIU/mL | LABORATORY | | Females: >5 mIU/mL HCG Ranges During Normal | SERVICES, CORE | | : Weeks Post Last Menstrual Period: Approximate hCG | | | Range, mIU/mL 3-4 weeks | | | 9 - 130 4-5 weeks | | | 75 - 2600 5-6 weeks | | | 850 - 99276 6-7 weeks | | | 4000 - 701750 7-12 weeks | | | 70172 - 776666 12-16 weeks | | | 08385 - 920081 16-29 | | | weeks 1400 - 73536 | | | 29-41 weeks 940 - 37934 | | | This test has not been approved for use as a tumor marker in | | | males or females. | | + + + + + + + + | Performing | Address | City/State/Zipcode | Phone Number | | Organization | | | | + + + + + | [employer] | [address] | [place] [address] | | | SERVICES, CORE | [address] | | | + + + + + ED INFORMATION EXCHANGE (09/27/2019 4:46 PM PST) + + | Specimen | + + | | + + + + + | Narrative | Performed At | + + + | COLLECTIVE?NOTIFICATION?09/27/2019 16:45?ROSE FERNANDO?MRN: | COLLECTIVE | | [id number] Criteria Met 5 Visits In 12 Months Has | MEDICAL | | Guidelines Security and Safety No recent Security Events | [employer]OLOG[employer] | | currently on file ED Care Guidelines from [facility] [place] | | | Last Updated: 12/06/18 1:12 PM Care Coordination: Currently | | | engaged in mental health services with [facility].? Please contact | | | [facility] for mental health concerns.? [place] office: [phone]. | | | These are guidelines and the provider should exercise clinical | | | judgment when providing care. Care History Medical/Surgical | | | 08/15/19 12:00 AM [facility] Patient was seen outside | | | of walk in clinic hours.? Advised patient to follow up with PCP | | | Aviva Bolivar, patient agreed.? Has annual?WNC?exam with | | | Devendra on 10/25/2019 Flags [place] Disparity [place] - | | | [place]) to help | | | support Medicaid members with mental illness. [facility] | | | Authority uses claims data with a 36-month rolling look back period | | | to identify members who have had two or more diagnoses of mental | | | illness (does not need to be primary) in any setting (e.g. ED, | | | Inpatient, primary care). Flagged members are included in the ED | | | Disparity Measure denominator population. Flags are updated weekly. | | | / Attributed By: [place] [facility] ([facility]) / Attributed On: | | | 08/29/2019 Prescription Drug Report (12 Mo.) PDMP query found | | | no report. E.D. Visit Count (12 mo.) Facility Visits [place] | | | [facility] 2 [facility] 6 Total | | | 8 Note: Visits indicate total known visits. Recent Emergency | | | Department Visit Summary Date Facility City State Type Diagnoses or | | | Chief Complaint Sep 27, 2019 [facility] | | | [place] Emergency 10,800. Test Sep [facility], 2019 [facility] | | | [place] Emergency Proc/trtmt not crd out bec | | | pt decision for unsp reasons Acute pharyngitis, unspecified | | | Aug 14, 2019 [facility] [place] Emergency Anxiety | | | disorder, unspecified Allergy status to other antibiotic agents | | | status Other fpc (current) drug therapy Bee allergy | | | status Allergy status to narcotic agent status Allergy | | | status to penicillin Dizziness and giddiness Major | | | depressive disorder, single episode, unspecified Jul 30, 2019 [facility] | | | [place] Emergency Nausea with vomiting, | | | unspecified Unspecified asthma, uncomplicated Anxiety | | | disorder, unspecified Other fpc (current) drug therapy | | | Allergy status to other antibiotic agents status Bee allergy | | | status Allergy status to penicillin Bipolar disorder, | | | unspecified Allergy status to narcotic agent status May 09, | | | 2018 [facility] [place] Emergency | | | 10,800. Back Pain 18,400. Abrasion of unspecified back wall of | | | thorax, [facility] [place] [place] [facility] | | [facility] Major depressive disorder, single episode, | | | unspecified Allergy status to narcotic agent status | | | Allergy status to oth drug/meds/biol subst status Fall on same | | | level, unspecified, initial encounter Abrasion of right hand, | | | initial encounter Allergy status to penicillin Bipolar | | | disorder, unspecified Abrasion, left knee, initial encounter | | | Acquired absence of other organs Unspecified injury of left | | | lower leg, initial encounter December 19, 2018 [facility] | [facility] [place] Emergency Other skin changes Dec 06, 2018 [facility] | | | [place] Emergency Allergy status to penicillin | | | Acquired absence of other organs Allergy status to | | | narcotic agent status Unspecified asthma, uncomplicated | | | Post-traumatic stress disorder, unspecified Other insect allergy | | | status Panic disorder [episodic paroxysmal anxiety] Oth | | | allergy status, oth than to drugs and biolg substances Bipolar | | | disorder, unspecified Recent Inpatient Visit Summary No | | | recorded inpatient visits. Care Team Provider Specialty Phone | | | Fax Service Dates JESUS RAMSAY M.D. JOHN, M.D. General | | | Practice Sep 21, 2018 - Current AVIVA BOLIVAR, KATTY- Nurse | | | Practitioner: [facility] Feb 17, | | | 2018 - Current [facility] This patient has registered | | | at the [facility] Emergency Department | | | For more information visit: | | | [email or web address] | | | [email or web address] PLEASE NOTE: 1. Any care recommendations and | | | other clinical information are provided as guidelines or for | | | historical purposes only, and providers should exercise their own | | | clinical judgment when providing care. 2. You may only use this | | | information for purposes of treatment, payment or health care | | | operations activities, and subject to the limitations of applicable | | | Collective Policies. 3. You should consult directly with the | | | organization that provided a care guideline or other clinical | | | history with any questions about additional information or accuracy | | | or completeness of information provided. ? 2020 [employer] | | | [email or web address] | | + + + + + | Procedure Note | + + | Service Account, Rtf Results Inbound - 09/27/2019 4:48 PM PST Formatting of this | | note might be different from the original.COLLECTIVE?NOTIFICATION?09/27/2019 | | 16:45?ROSE FERNANDO? Met 5 Visits In 12 Months Has | | GuidelinesSecurity and SafetyNo recent Security Events currently on fileED Care | | Guidelines from [facility] [place] Updated: 12/06/18 1:12 PM Care | | Coordination:Currently engaged in mental health services with [facility].? Please contact | | [facility] for mental health concerns.? [place] office: [phone].These are | | guidelines and the provider should exercise clinical judgment when providing care.Care | | HistoryMedical/Atjjngqp97/31/19 [facility].? Advised patient to follow up with PCP Aviva Bolivar, | | patient agreed.? Has annual?WNC?exam with Dr. Ramsay on 10/25/2019Flags [place] ED | | Disparity Measure - [place] has [place] flag [place] Dis[place]) to help | | support Medicaid members with mental illness. [facility] uses claims data | | with a 36-month rolling look back period to identify members who have had two or more | | diagnoses of mental illness (does not need to be primary) in any setting (e.g. ED, | | Inpatient, primary care). Flagged members are included in the ED Disparity Measure | | denominator population. Flags are updated weekly. / Attributed By: [place] [facility] | | Authority ([place]) / Attributed On: 08/29/2019 Prescription Drug Report (12 Mo.)PDMP query | | found no report.E.D. Visit Count (12 mo.)Facility Visits [facility] | | [place] 2 [facility] 6 Total 8 Note: Visits indicate total known | | visits. Recent Emergency Department Visit SummaryDate Facility City State Type | | Diagnoses or Chief Complaint Sep 27, 2019 [facility] [place] | | Emergency 10,800. Test Sep 22, 2019 [facility] [place] Emergency | | Proc/trtmt not crd out bec pt decision for unsp reasons Acute pharyngitis, | | unspecified Aug 14, 2019 [facility] [place] Emergency Anxiety disorder, | | unspecified Allergy status to other antibiotic agents status Other fpc | | (current) drug therapy Bee allergy status Allergy status to narcotic agent status | | Allergy status to penicillin Dizziness and giddiness Major depressive disorder, | | single episode, unspecified Jul 30, 2019 [facility] [place] Emergency | | Nausea with vomiting, unspecified Unspecified asthma, uncomplicated Anxiety | | disorder, unspecified Other fpc (current) drug therapy Allergy status to | | other antibiotic agents status Bee allergy status Allergy status to penicillin | | Bipolar disorder, unspecified Allergy status to narcotic agent status May 09, 2019 | | [facility] [place] Emergency 10,800. Back Pain 18,400. | | Abrasion of unspecified back wall of thorax, init encntr Feb 06, 2019 [facility] [place] | [place] Emergency Major depressive disorder, single episode, unspecified | | Allergy status to narcotic agent status Allergy status to oth drug/meds/biol subst | | status Fall on same level, unspecified, initial encounter Abrasion of right hand, | | initial encounter Allergy status to penicillin Bipolar disorder, unspecified | | Abrasion, left knee, initial encounter Acquired absence of other organs | | Unspecified injury of left lower leg, initial encounter December 19, 2018 [facility] [place] | [place] Emergency Other skin changes Dec 06, 2018 [facility] [place] | | Emergency Allergy status to penicillin Acquired absence of other organs Allergy | | status to narcotic agent status Unspecified asthma, uncomplicated Post-traumatic | | stress disorder, unspecified Other insect allergy status Panic disorder [episodic | | paroxysmal anxiety] Oth allergy status, oth than to drugs and biolg substances | | Bipolar disorder, unspecified Recent Inpatient Visit SummaryNo recorded inpatient | | visits. Care TeamProvider Specialty Phone Fax Service Dates JESUS RAMSAY M.D. | | Ihsan LOERA. Construction Equipment Technician Sep 21, 2018 - Current AVIVA BOLIVAR, [facility]- Nurse | | Practitioner: [facility] Feb 17, 2018 - Current | | Shoulder TapThis patient has registered at the [facility] | | Emergency Department For more information visit: | | [email or web address] PLEASE | | NOTE: 1. Any care recommendations and other clinical information are provided as | | guidelines or for historical purposes only, and providers should exercise their own | | clinical judgment when providing care. 2. You may only use this information for | | purposes of treatment, payment or health care operations activities, and subject to the | | limitations of applicable Collective Policies. 3. You should consult directly with | | the organization that provided a care guideline or other clinical history with any | | questions about additional information or accuracy or completeness of information | | provided.? 2019 [facility]. - [email or web address] | | Nausea with vomiting, unspecified | | Unspecified asthma, uncomplicated | | Anxiety disorder, unspecified | | Other roasterman (current) drug therapy | | Allergy status to other antibiotic agents status | | Bee allergy status | | Allergy status to penicillin | | Bipolar disorder, unspecified | | Allergy status to narcotic agent status | | | |May 09, 2019 [facility] [place] Emergency | | 10,800. Back Pain | | 18,400. Abrasion of unspecified back wall of thorax, init encntr | | | |Feb 06, 2019 [facility] [place] Emergency | | Major depressive disorder, single episode, unspecified | | Allergy status to narcotic agent status | | Allergy status to oth drug/meds/biol subst status | | Fall on same level, unspecified, initial encounter | | Abrasion of right hand, initial encounter | | Allergy status to penicillin | | Bipolar disorder, unspecified | | Abrasion, left knee, initial encounter | | Acquired absence of other organs | | Unspecified injury of left lower leg, initial encounter | | | |December 19, 2018 [facility] [place] | | Other skin changes | | | |Dec 06, 2018 [facility] [place] | | Allergy status to penicillin | | Acquired absence of other organs | | Allergy status to narcotic agent status | | Unspecified asthma, uncomplicated | | Post-traumatic stress disorder, unspecified | | Other insect allergy status | | Panic disorder [episodic paroxysmal anxiety] | | Oth allergy status, oth than to drugs and biolg substances | | Bipolar disorder, unspecified | | | | | | | |Recent Inpatient Visit Summary | |No recorded inpatient visits. | | | |Care Team | |Provider Specialty Phone Fax Service Dates | |JESUS RAMSAY M.D. Ihsan LOERA. Construction Equipment Technician Sep 21, 2018 - Current | |AVIVA BOLIVAR, KATTY- Nurse Practitioner: [facility] Feb 17, 2018 - Current | | | |Collective Portal | |This patient has registered at the [facility] [place] Emergency Departmen t | |For more information visit: [email or web address] | |PLEASE NOTE: | | 1. Any care recommendations and other clinical information are provided as guidelines or for historical purposes only, and providers should exercise their own clinical judgment whe n providing care. | | 2. You may only use this information for purposes of treatment, payment or health care o perations activities, and subject to the limitations of applicable Collective Policies. | | 3. You should consult directly with the organization that provided a care guideline or o ther clinical history with any questions about additional information or accuracy or complet eness of information provided. | | | |? 2020 [facility]. - [email or web address] ([email or web address]) | + + + + + + + | Performing | Address | City/State/Zipcode | Phone Number | | Organization | | | | + + + + + | [facility] | [address] | [place], [place] | [phone] | | [employer] | [address] | [address] | | + + + + + documented in this encounter Visit Diagnoses + + | Diagnosis | + + | Laboratory test - Primary Laboratory examination, unspecified | + + documented in this encounter"
--- OUTSIDE RECORDS SUMMARY | ~2020-03-27 | XMS | Encounter Summary ---
Demographics + + + | Address | [address] | | | [place] [address] | + + + | Home Phone | | + + + | Preferred Language | Unknown | + + + | Marital Status | | + + + | Episcopalian Affiliation | NRP | + + + [...] Team Providers + +------+ + | Care Seed Expert Name | Role | Phone | + +------+ + | Miroslava Gonzales NP | JOSSELINE | | + +------+ + Encounter Details +--------+--------+ + + + | Date | Type | Department | Care Team | Description | +--------+--------+ + + + | /12/ | Travel | | | | | 2020 | | | | | +--------+--------+ + [...]
--- OUTSIDE RECORDS SUMMARY | ~2020-03-27 | XMS | Encounter Summary ---
Demographics + + + | Address | [address] | | | [place] [address] | + + + | Home Phone | | + + + | Preferred Language | Unknown | + + + | Marital Status | | + + + | Christian Affiliation | NRP | + + + | Race | White | + + + | Ethnic Group | Not or | + + + Author + + + | Author | [facility] | + + + | Organization | [facility] | + + + | Address | Unknown | + + + | Phone | Unavailable | + + + Support + + +---------+ + | Name | Relationship | Address | Phone | + + +---------+ + | Amparo De La Cruz | ECON | Unknown | | + + +---------+ + Care Team Providers + +------+ + | Care Station Mechanic Helper Name | Role | Phone | + +------+ + | Unknown | PCP | Unavailable | + +------+ + Reason for Visit + + + | Reason | Comments | + + + | Wound Check | | + + + AUTH/CERT +--------+--------+ + + + + | Status | Reason | Specialty | Diagnoses / | Referred By | Referred To | | | | | Procedures | Contact | Contact | +--------+--------+ + + + + | | | | | | | +--------+--------+ + + + + Encounter Details +--------+ + + + + | Date | Type | Department | Care Team | Description | +--------+ + + + + | 05/09/ | Emergency | [facility] Emergency | Reanna Tracey, | | | 2018 | | Department [address] | MD [address] [facility] | | | | | [address] | [place] [address] | | | | | [facility] | [place], [place] | | | | | [place], [place] | [address] | | | | | [address] | [phone] | | | | | [phone] | | | +--------+ + + + [...] + + + | Blood Pressure | 107/75 | 05/09/2019 6:58 PM | | | | | PDT | | + + + + + | Pulse | 85 | 05/09/2019 6:58 PM | | | | | PDT | | + + + + + | Temperature | 37.1 C (98.7 F) | 05/09/2019 6:58 PM | | | | | PDT | | + + + + + | Respiratory Rate | 18 | 05/09/2019 6:58 PM | | | | | PDT | | + + + + + | Oxygen Saturation | 100% | 05/09/2019 6:58 PM | | | | | PDT | | + + + + + | Inhaled Oxygen | - | - | | | Concentration | | | | + + + + + | Weight | 66.9 kg (147 lb 7.8 | 05/09/2019 6:58 PM | | | | oz) | PDT | | + + + + + | Height | - | - | | + + + + + | Body Mass Index | - | - | | + + + + + documented in this encounter Discharge Instructions Instructions Floyd Aldrich MD - 05/09/2019Apolinar were seen in the ER after an injury to y our low back from the faucet. We are not concerned about a fracture. You likely have a bruis e underneath the abrasion. You can put topical antibiotic ointment over the area and use an ice pack. If you develop severe or worsening pain, large areas of redness, or any other concerns, you should be seen again in the ER. The number for the [facility] Intensive Care Unit Maintenance Mechanic Supervisor is [phone] documented in this encounter Plan of Treatment Not on filedocumented as of this encounter Procedures + +--------+ + + + | Procedure Name | Priori | Date/Time | Associated Diagnosis | Comments | | | ty | | | | + +--------+ + + + | ED INFORMATION | Routin | 05/09/2019 | | Results for this | | EXCHANGE | e | 8:04 PM | | procedure are in the | | | | PDT | | results section. | + +--------+ + + + documented in this encounter Results ED INFORMATION EXCHANGE (05/09/2019 8:04 PM PDT) + + | Specimen | + + | | + + + + + | Narrative | Performed At | + + + | [facility]?NOTIFICATION?05/09/2019 19:11?THIJimenaROSE?MRN: | [facility] | | [id number] Criteria Met 5 Visits In 12 Months Has | MEDICAL | | Guidelines Security and Safety No recent Security Events | [employer] | | currently on file ED Care Guidelines from [facility]ena | | | Last Updated: 12/06/18 1:12 PM Care Coordination: Currently | | | engaged in mental health services with [facility].? Please contact | | | [facility] for mental health concerns.? [place] office: [phone]. | | | These are guidelines and the provider should exercise clinical | | | judgment when providing care. Care History Medical/Surgical | | | 02/08/19 12:[address] [facility] PER DONTE AT | | | [facility] CASE MANAGEMENT-PATIENT HAS MET GOALS WITH THEM AND IS BEING | | | CASE MANAGED BY RENU CARE TEAM ADHESIVE BANDAGE MAKING OPERATOR. 12/06/18 | | | 12:[address] [facility] Case Management | | | referral made. Patient has [employer] insurance and is utilizing the ED | | | for mental health services. 01/19/18 12:00 AM [facility] | | | Hospital [facility] referred patient to [facility] Nurse | | | Partnership Program. Deedee the RN that runs the program can be | | | contacted at [phone]. Care Recommendation: This patient has | | | had 5 or more Emergency Department visits in the last 12 months.? | | | Patient requires education on the scope and purpose of the ED as an | | | acute care provider not a Primary Care Provider and should not be | | | utilized for chronic conditions.? If patient returns to ED please | | | contact Community Health WorkerCarlota at [phone]. These are | | | guidelines and the provider should exercise clinical judgment when | | | providing care. Prescription Drug Report (12 Mo.) Rx Details | | | Fill Date Drug Description Qty. Prescriber CS MED 2018-09-13 | | | OXYCODONE-ACETAMINOPHEN 5-325 28 JESUS MONIQUE M.D. 2 30 Rx | | | Summary Metric Count CS II-V Rx 1 CS-II Rx 1 Quantity Dispensed | | | 28 Unique Prescribers 1 Unique Pharmacies 1 Benzos 0 Opioids | | | 1 Long Acting Opioids 0 E.D. Visit Count (12 mo.) | | | Facility Visits [facility] 1 [facility]. | | | [place] [address] Total 5 Note: Visits indicate total known | | | visits. Recent Emergency Department Visit Summary Date | | | Facility City State Type Diagnoses or Chief Complaint May 09, 2019 | | | [facility] [place] Emergency | | | 10,800. Back Pain 18,400. Abrasion of unspecified back wall of | | | thorax, initial encounter Feb 06, [address] [facility] [place] | | | [place] Emergency Major depressive disorder, single episode, | | | unspecified Allergy status to narcotic agent status | | | Allergy status to other drugs, medicaments and biological substances | | | status Fall on same level, unspecified, initial encounter | | | Abrasion of right hand, initial encounter Allergy status to | | | penicillin Bipolar disorder, unspecified Abrasion, left | | | knee, initial encounter Acquired absence of other organs | | | Unspecified injury of left lower leg, initial encounter December 19, | | | [address] [facility] [place] Emergency Other skin changes | | | Dec 06, [address] [facility] [place] Emergency | | | Allergy status to penicillin Acquired absence of other organs | | | Allergy status to narcotic agent status Unspecified | | | asthma, uncomplicated Post-traumatic stress disorder, | | | unspecified Other insect allergy status Panic disorder | | | [episodic paroxysmal anxiety] Other allergy status, other than | | | to drugs and biological substances Bipolar disorder, unspecified | | | Sep 20, 2018 [facility] [place] Emergency | | | Allergy status to other antibiotic agents status Diseases of | | | the respiratory system complicating the puerperium INFECTION OF | | | OBSTETRIC SURGICAL WOUND, UNSPECIFIED Other mental disorders | | | complicating the puerperium Allergy status to narcotic agent | | | status Bipolar disorder, unspecified Post-traumatic stress | | | disorder, unspecified Allergy status to penicillin | | | Unspecified asthma, uncomplicated Anxiety disorder, unspecified | | | Recent Inpatient Visit Summary Date Facility City State | | | Type Diagnoses or Chief Complaint Sep 09, [address] [facility] [place] [facility] | | [place] [facility] 40 weeks gestation of | | | Abnormality in heart rate and rhythm complicating labor and | | | delivery Other immediate hemorrhage | | | Streptococcus B carrier state complicating Maternal | | | care for high head at term, not applicable or unspecified Single | | | live Post-traumatic stress disorder, unspecified | | | Other [place] [facility] ([facility] drug therapy Streptococcus B carrier | | | state complicating childbirth Other mental disorders | | | complicating childbirth Care Team Provider Specialty Phone | | | Fax Service Dates JESUS MONIQUE M.D. JOHN, M.D. General | | | Practice Sep 21, 2018 - Current AVIVA BOLIVAR, KATTY- Nurse | | | Practitioner: Women's Health Feb 17, | | | 2018 - Current Hired Portal This patient has registered | | | at the [facility] and [facility] Emergency Department | | | For more information visit: | | | [email or web address] | | | [email or web address] PLEASE NOTE: 1. Any care recommendations and [...] | or completeness of information provided. ? 2019 [employer] | | | [employer]. - [email or web address] | | + + + + + | Procedure Note | + + | Service Account, Rtf Results Inbound - 05/09/2019 8:06 PM PDT Formatting of this | | note might be different from the original.COLLECTIVE?NOTIFICATION?05/09/2019 | | 19:11?ROSE FERNANDO Choco? Met 5 Visits In 12 Months Has | | GuidelinesSecurity and SafetyNo recent Security Events currently on fileED Care | | Guidelines from [facility] - Mara Updated: 12/06/18 1:12 PM Care | | Coordination:Currently engaged in mental health services with [facility].? Please contact | | [facility] for mental health concerns.? [place] office: [phone].These are | | guidelines and the provider should exercise clinical judgment when providing care.Care | | HistoryMedical/Surgical02/08/19 12:[address] [facility] JOHAN KENT AT [facility] | | CASE MANAGEMENT-PATIENT HAS MET GOALS WITH THEM AND IS BEING CASE MANAGED BY HETAL AND | | RY CARE TEAM ADHESIVE BANDAGE MAKING OPERATOR.12/06/18 12:00 AM [facility] Case | | Management referral made. Patient has [employer] insurance and is utilizing the ED for mental | | health services.01/19/18 12:[address] [facility] CHW referred patient to | | [facility] Nurse Partnership Program. Deedee the RN that runs the program can be | | contacted at [phone].Care Recommendation:This patient has had 5 or more Emergency | | Department visits in the last 12 months.? Patient requires education on the scope and | | purpose of the ED as an acute care provider not a Primary Care Provider and should not | | be utilized for chronic conditions.?If patient returns to ED please contact Community | | Health WorkerCarlota at [phone].These are guidelines and the provider should | | exercise clinical judgment when providing care.Prescription Drug Report (12 Mo.)Rx | | DetailsFill Date Drug Description Qty. Prescriber MED 2018-09-13 | | OXYCODONE-ACETAMINOPHEN 5-325 28 JESUS MONIQUE M.D. 2 30 Rx SummaryMetric Count CS | | II-V Rx 1 CS-II Rx 1 Quantity Dispensed 28 Unique Prescribers 1 Unique Pharmacies 1 | | Benzos 0 Opioids 1 Long Acting Opioids 0 E.D. Visit Count (12 mo.)Facility Visits [place] | | [facility] 1 [facility] 4 Total 5 Note: Visits | | indicate total known visits. Recent Emergency Department Visit SummaryDate Facility | | City State Type Diagnoses or Chief Complaint May 09, 2019 [facility] | | [place] Emergency 10,800. Back Pain 18,400. Abrasion of unspecified | | back wall of thorax, initial encounter Feb 06, [address] [facility] [place] | | Emergency Major depressive disorder, single episode, unspecified Allergy status to | | narcotic agent status Allergy status to other drugs, medicaments and biological | | substances status Fall on same level, unspecified, initial encounter Abrasion of | | right hand, initial encounter Allergy status to penicillin Bipolar disorder, | | unspecified Abrasion, left knee, initial encounter Acquired absence of other | | organs Unspecified injury of left lower leg, initial encounter December 19, [address] [facility] | | [place] Emergency Other skin changes Dec 06, [address] [facility] [place] [facility] | | [place] Emergency Allergy status to penicillin Acquired absence of other organs | | Allergy status to narcotic agent status Unspecified asthma, uncomplicated | | Post-traumatic stress disorder, unspecified Other insect allergy status Panic | | disorder [episodic paroxysmal anxiety] Other allergy status, other than to drugs and | | biological substances Bipolar disorder, unspecified Sep 20, [address] [facility] [place] [facility] | | [place] Emergency Allergy status to other antibiotic agents status Diseases of | | the respiratory system complicating the puerperium INFECTION OF OBSTETRIC SURGICAL | | WOUND, UNSPECIFIED Other mental disorders complicating the puerperium Allergy | | status to narcotic agent status Bipolar disorder, unspecified Post-traumatic | | stress disorder, unspecified Allergy status to penicillin Unspecified asthma, | | uncomplicated Anxiety disorder, unspecified Recent Inpatient Visit SummaryDate | | Facility City State Type Diagnoses or Chief Complaint Sep 09, 2018 [facility] | | [place] [facility] 40 weeks gestation of Abnormality in | | heart rate and rhythm complicating labor and delivery Other immediate | | hemorrhage Streptococcus B carrier state complicating Maternal care for | | high head at term, not applicable or unspecified Single live Post-traumatic | | stress disorder, unspecified Other terminologist (current) drug therapy Streptococcus | | B carrier state complicating childbirth Other mental disorders complicating | | childbirth Care TeamProvider Specialty Phone Fax Service Dates JESUS MONIQUE, | | Neha LOERA M.D. Director Trade Sep 21, 2018 - Current AVIVA BOLIVAR, NP-BC | | Nurse Practitioner: Women's Health Feb 17, 2018 - Current | | Hired PortalThis patient has registered at the [facility] and [facility] | | Emergency Department For more information visit: | | [email or web address] PLEASE | | NOTE: 1. Any care [...] completeness of information | | provided.? 2019 [employer]. - [email or web address] | | | |Feb 06, 2019 [facility] [place] Emergency | | Major depressive disorder, single episode, unspecified | | Allergy status to narcotic agent status | | Allergy status to other drugs, medicaments and biological substances status | | Fall on same level, unspecified, initial encounter | | Abrasion of right hand, initial encounter | | Allergy status to penicillin | | Bipolar disorder, unspecified | | Abrasion, left knee, initial encounter | | Acquired absence of other organs | | Unspecified injury of left lower leg, initial encounter | | | |December 19, [address] [facility] [place] Emergency | | Other skin changes | | | |Dec 06, [address] [facility] [place] Emergency | | Allergy status to penicillin | | Acquired absence of other organs | | Allergy status to narcotic agent status | | Unspecified asthma, uncomplicated | | Post-traumatic stress disorder, unspecified | | Other insect allergy status | | Panic disorder [episodic paroxysmal anxiety] | | Other allergy status, other than to drugs and biological substances | | Bipolar disorder, unspecified | | | |Sep 20, [address] [facility] [place] Emergency | | Allergy status to other antibiotic agents status | | Diseases of the respiratory system complicating the puerperium | | INFECTION OF OBSTETRIC SURGICAL WOUND, UNSPECIFIED | | Other mental disorders complicating the puerperium | | Allergy status to narcotic agent status | | Bipolar disorder, unspecified | | Post-traumatic stress disorder, unspecified | | Allergy status to penicillin | | Unspecified asthma, uncomplicated | | Anxiety disorder, unspecified | | | | | | | |Recent Inpatient Visit Summary | |Date Facility City State Type Diagnoses or Chief Complaint | |Sep 09, [address] [facility] [place] [facility] | | 40 weeks gestation of | | Abnormality in heart rate and rhythm complicating labor and delivery | | Other immediate hemorrhage | | Streptococcus B carrier state complicating | | Maternal care for high head at term, not applicable or unspecified | | Single live | | Post-traumatic stress disorder, unspecified | | Other [place] [facility] ([facility] drug therapy | | Streptococcus B carrier state complicating childbirth | | Other mental disorders complicating childbirth | | | | | | | |Care Team | |Provider Specialty Phone Fax Service Dates | |JESUS MONIQUE M.D. JOHN, M.D. Director Trade Sep 21, 2018 - Current | |AVIVA BOLIVAR KATTY- Nurse Practitioner: Women's Health Feb 17, 2018 - Current | | | |Hired Portal | |This patient has registered at the [facility] and [facility] Departmen t | |For more information visit: [email or web address] | |PLEASE NOTE: | | 1. Any [...] of information provided. | | | |? 2019 [employer]. - [email or web address] | + + + + + + + | Performing | Address | City/State/Zipcode | Phone Number | | Organization | | | | + + + + + | [facility] | [address] | [place], [place] | [phone] | | [employer] | [address] | [address] | | + + + + + documented in this encounter Visit Diagnoses + + | Diagnosis | + + | Abrasion of back, unspecified laterality, initial encounter - Primary | + + documented in this encounter"
--- OUTSIDE RECORDS SUMMARY | ~2020-03-27 | XMS | Clinical Summary ---
Demographics + + + | Address | [address] | | | [place] [address] | + + + | Home Phone | | + + + | Preferred Language | Unknown | + + + | Marital Status | Single | + + + | Tenriism Affiliation | Unknown | + + + | Race | Unknown | + + + | Ethnic Group | Unknown | + + + Author + + + | Author | [facility] | | | and [place] | + + + | Organization | [facility] | | | and [place] | + + + | Address | Unknown | + + + | Phone | Unavailable | + + + Support + + +---------+ + | Name | Relationship | Address | Phone | + + +---------+ + | Amparo De La Cruz | ECON | Unknown | | + + +---------+ + Care Team Providers + +------+ + | Care Carry In Worker Name | Role | Phone | + +------+ + | Apolinar Laughlin MD | PCP | | + +------+ + Allergies Not on File Medications Not on file Active Problems Not on file Social History + +-------+ +--------+------+ | Tobacco Use | Types | Packs/Day | Years | Date | | | | | Used | | + +-------+ +--------+------+ | Never Smoker | | | | | + +-------+ +--------+------+ + + + | Sex Assigned at | Date Recorded | | | | + + + | Not on file | | + + + Last Filed Vital Signs + + + + + | Vital Sign | Reading | Time Taken | Comments | + + + + + | Blood Pressure | 109/74 | 10/16/2015 3:27 PM | | | | | PST | | + + + + + | Pulse | 89 | 10/16/2015 3:27 PM | | | | | PST | | + + + + + | Temperature | 36.2 C (97.2 F) | 10/16/2015 3:27 PM | | | | | PST | | + + + + + | Respiratory Rate | 18 | 10/16/2015 3:27 PM | | | | | PST | | + + + + + | Oxygen Saturation | - | - | | + + + + + | Inhaled Oxygen | - | - | | | Concentration | | | | + + + + + | Weight | 59.2 kg (130 lb 8.2 | 10/16/2015 3:27 PM | | | | oz) | PST | | + + + + + | Height | - | - | | + + + + + | Body Mass Index | - | - | | + + + + + Plan of Treatment + + +-------+ + | Health Maintenance | Due Date | Last | Comments | | | | Done | | + + +-------+ + | Well Child Check | | | | | | 3 | | | + + +-------+ + | Vaccine: HPV (1 - | | | | | 2-dose series) | 1 | | | + + +-------+ + | Vaccine: | | | | | Dtap/Tdap/Td (1 - | 9 | | | | Tdap) | | | | + + +-------+ + | Vaccine: Influenza | | | | | (#1) | 0 | | | + + +-------+ + Results Not on filefrom Last 3 Months"
--- OUTSIDE RECORDS SUMMARY | ~2020-03-27 | XMS | Encounter Summary ---
Demographics + + + | Address | [address] | | | [place] [address] | + + + | Home Phone | | + + + | Preferred Language | Unknown | + + + | Marital Status | | + + + | Methodist Affiliation | NRP | + + + | Race | White | + + + | Ethnic Group | Not or | + + + Author + + + | Author | [facility] | + + + | Organization | [facility] | + + + | Address | Unknown | + + + | Phone | Unavailable | + + + Support + + +---------+ + | Name | Relationship | Address | Phone | + + +---------+ + | Amparo De La Cruz | ECON | Unknown | | + + +---------+ + Care Team Providers + +------+ + | Care Claim Analyst Name | Role | Phone | + [...] + + | 05/09/ | Emergency | [facility] Emergency | Reanna Tracey, | | | 2018 | | Department [address] | MD [address] [facility] | | | | | [address] | [place] [address]azar | | | | | [facility] | [place], [place] | | | | | [place], [place] | [address] | | | | | [address] | [phone] | | | | | [phone] | | | +--------+ + + + [...] [facility] Intensive Care Unit Relationship Manager is [phone] documented in this encounter Plan of Treatment [...] | COLLECTIVE?NOTIFICATION?05/09/2019 19:11?THIJimenaROSE?MRN: | COLLECTIVE | | [id number] Criteria Met 5 Visits In 12 Months Has | MEDICAL | | Guidelines Security and Safety No recent Security Events | TECHNOLOGIES | | currently on file ED Care Guidelines from [facility] | | | Last Updated: 12/06/18 1:12 PM Care Coordination: Currently | | | engaged in mental health services with [email or web address].? Please contact | | | [email or web address] for mental health concerns.? [place] office: [phone]. | | | These are guidelines and the provider should exercise clinical | | | judgment when providing care. Care History Medical/Surgical | | | 02/08/19 12:00 AM [facility] PER DONTE AT | | | [facility] CASE MANAGEMENT-PATIENT HAS MET GOALS WITH THEM AND IS BEING | | | CASE MANAGED BY RENU CARE TEAM SUPERVISOR [employer]. 12/06/18 | | | 12:00 AM [facility] Case Management | | | referral made. Patient has [facility] insurance and is utilizing the ED | | | for mental health services. 01/19/18 12:00 AM [facility] | | | Hospital CHW referred patient to Leena Becerra Nurse | | | Partnership Program. Deedee the RN that runs the program can be | | | contacted at [phone]. Care Recommendation: This patient has | | [...] | | contact Community Health WorkerCarlota at [phone]. These are | | | guidelines and [...] (12 mo.) | | | Facility Visits [facility] 1 [facility]. | | | [place] [address] Total 5 Note: Visits indicate total known | | | visits. Recent Emergency Department Visit Summary Date | | | Facility City State Type Diagnoses or Chief Complaint May 09, 2019 | | | [facility] [place] Emergency | | | 10,800. Back Pain 18,400. Abrasion of unspecified back wall of | | | thorax, initial encounter Feb 06, 2019 [facility] [place] | | [place] Emergency [...] encounter December 19, | | | 2018 [facility] [place] Emergency Other skin changes | | | Dec 06, 2018 [facility] [place] Emergency | | | [...] | | | Sep 20, 2018 [facility] [place] | | | [...] Diagnoses or Chief Complaint Sep 09, 2018 [facility] [place] [facility] | | | [place] [facility] 40 weeks gestation of | | | Abnormality in heart rate and rhythm complicating labor and | | | delivery Other immediate hemorrhage | | | Streptococcus B carrier state complicating Maternal | | | care for high head at term, not applicable or unspecified Single | | | live Post-traumatic stress disorder, unspecified | | | Other care home (current) drug therapy Streptococcus B carrier | [...] 17, | | | 2018 - Current [employer] Portal This patient has registered | | | at the [facility] and [facility] Emergency Department | | | For more information visit: | | | [email or web address] | | | [email or web address] c PLEASE NOTE: 1. Any care recommendations [...] ? 2019 [employer] | | | [employer]. - [email or web address] | | + + + + + [...] on fileED Care | | Guidelines from [email or web address] - [place] Updated: 12/06/18 1:12 PM Care | | Coordination:Currently engaged in mental health services with [email or web address].? Please contact | | [email or web address] for mental health concerns.? [place] office: [phone].These are | | guidelines and the provider should exercise clinical judgment when providing care.Care | | HistoryMedical/Surgical02/08/19 12:00 AM [facility] JOHAN KENT AT [facility] | | CASE MANAGEMENT-PATIENT HAS MET GOALS WITH THEM AND IS BEING CASE MANAGED BY HETAL AND | | RY CARE TEAM SUPERVISOR [employer].12/06/18 12:[address] [facility] Case | | Management referral made. Patient has [facility] insurance and is utilizing the ED for mental | | health services.01/19/18 12:00 AM [facility] CHW referred patient to | | Leena Becerra Nurse Partnership Program. Deedee the RN that runs the program can be | | contacted at [phone].Care Recommendation:This patient has had 5 or more Emergency | | Department visits in the last 12 months.? Patient requires education on the scope and | | purpose of the ED as an acute care provider not a Primary Care Provider and should not | | be utilized for chronic conditions.?If patient returns to ED please contact Community | | Health WorkerCarlota at [phone].These are guidelines and the provider should | [...] 0 E.D. Visit Count (12 mo.)Facility Visits [place] | | [facility] 1 [facility] 4 Total 5 Note: Visits | | indicate total known visits. Recent Emergency Department Visit SummaryDate Facility | | City State Type Diagnoses or Chief Complaint May 09, 2019 [facility] | | [place] Emergency 10,800. Back Pain 18,400. Abrasion of unspecified | | back wall of thorax, initial encounter Feb 06, 2019 [facility] [place] | | Emergency Major [...] lower leg, initial encounter December 19, [address] [facility] [address] | | [place] Emergency Other skin changes Dec 06, 2018 [facility] [place] | | [place] Emergency Allergy status to penicillin Acquired absence of other organs | | Allergy status to narcotic agent status Unspecified asthma, uncomplicated | | Post-traumatic stress disorder, unspecified Other insect allergy status Panic | | disorder [episodic paroxysmal anxiety] Other allergy status, other than to drugs and | | biological substances Bipolar disorder, unspecified Sep 20, 2018 [facility] [place] | | [place] Emergency Allergy [...] 2018 [facility]. | | 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 Public Health Training Assistant Sep 21, 2018 - Current AVIVA BOLIVAR, NP-BC | | Nurse Practitioner: Women's Health Feb 17, 2018 - Current | | [employer] PortalThis patient has registered at the [facility] and [facility] [place] | | Emergency Department For more information visit: | | [email or web address] PLEASE | | NOTE: 1. Any care [...] completeness of information | | provided.? 2019 [employer]. - www.[employer] | | | |Feb 06, 2019 [place] [...] encounter | | | |December 19, 2018 [facility] [place] Emergency | | Other skin changes | | | |Dec 06, 2018 [facility] [place] Emergency | | Allergy [...] unspecified | | | |Sep 20, 2018 [facility] [place] Emergency | | Allergy [...] or Chief Complaint | |Sep 09, 2018 [facility] [place] [facility] | | 40 weeks gestation of | | Abnormality in heart rate and rhythm complicating labor and delivery | | Other immediate hemorrhage | | Streptococcus B carrier state complicating | | Maternal care for high head at term, not applicable or unspecified | | Single live | | Post-traumatic stress disorder, unspecified | | Other care home (current) drug therapy | | Streptococcus B carrier state complicating childbirth | | Other mental disorders complicating childbirth | | | | | | | |Care Team | |Provider Specialty Phone Fax Service Dates | |JESUS MONIQUE M.D. JOHN, M.D. Public Health Training Assistant Sep 21, 2018 - Current | |AVIVA BOLIVAR KATTY- Nurse Practitioner: Women's Health Feb 17, 2018 - Current | | | |[employer] Portal | |This patient has registered at the [facility] and [facility] [place] Emergency Departmen t | |For more information visit: [email or web address] | |PLEASE NOTE: | | 1. Any [...] information provided. | | | |? 2019 [employer]. - www.[employer] | + + + + + + + | Performing | Address | City/State/Zipcode | Phone Number | | Organization | | | | + + + + + | [facility] [facility] | [address] | [place], [place] | [phone] | | TECHNOLOGIES | [address] | [address] | | + + + + + documented in this encounter Visit Diagnoses + + | Diagnosis | + + | Abrasion of back, unspecified laterality, initial encounter - Primary | + + documented in this encounter"
--- OUTSIDE RECORDS SUMMARY | ~2020-03-27 | XMS | Encounter Summary ---
Demographics + + + | Address | [address] | | | [place] [address] | + + + | Home Phone | | + + + | Preferred Language | Unknown | + + + | Marital Status | | + + + | Baptism Affiliation | NRP | + + + [...] Team Providers + +------+ + | Care Liquid Waste Treatment Plant Operator Name | Role | Phone | [...]
--- OUTSIDE RECORDS SUMMARY | ~2020-03-27 | XMS | Encounter Summary ---
Demographics + + + | Address | [address] | | | [place] [address] | + + + | Home Phone | | + + + | Preferred Language | Unknown | + + + | Marital Status | | + + + | Jewish Affiliation | NRP | + + + | Race | White | + + + | Ethnic Group | Not or | + + + Author + + + | Author | [facility] | + + + | Organization | [facility] | + + + | Address | Unknown | + + + | Phone | Unavailable | + + + Support + + +---------+ + | Name | Relationship | Address | Phone | + + +---------+ + | Amparo De La Cruz | ECON | Unknown | | + + +---------+ + Care Team Providers + +------+ + | Care Neon Glass Blower Name | Role | Phone | + [...] + + | 09/27/ | Emergency | [facility] Emergency | Cabrera Abbott, | | | 2020 | | Department [address] | [address] | | | | | [address] | [address] | | | | | [facility] | [place], [place] | | | | | [place], [place] | [address] | | | | | [address] | [phone] | | | | | [phone] | | | +--------+ + + + [...] dollar and can be bought at the [employer] store. If it is negative and you were concerned it is a false negative test, you can wait 2 days to see if it is definitively negative or actually turns positive. AttachmentsThe following attachments cannot be sent through Care Everywhere.: Gene ral Info (Nigerien)documented in this encounter Plan of Treatment Not [...] 5-6 weeks | | | 850 - 62963 6-7 weeks | | | 4000 - 176647 7-12 weeks | | | 39138 - 896957 12-16 weeks | | | 75938 - 322433 16-29 | | | weeks 1400 - 15137 | | | 29-41 weeks 940 - 19809 | | | This test has not been approved for use as a tumor marker in | | | males or females. | | + + + + + + + + | Performing | Address | City/State/Zipcode | Phone Number | | Organization | | | | + + + + + | [employer] | [address] | [place] [address] | | | SERVICES, CORE | [address] | | | + + + + + ED INFORMATION EXCHANGE (09/27/2019 4:46 PM PST) + + | Specimen | + + | | + + + + + | Narrative | Performed At | + + + | COLLECTIVE?NOTIFICATION?09/27/2019 16:45?ROSE FERNANDO?MRN: | [facility] | | [id number] Criteria Met 5 Visits In 12 Months Has | MEDICAL | | Guidelines Security and Safety No recent Security Events | TECHNOLOGIES | | currently on file ED Care Guidelines from [email or web address] [facility] [place] | | | Last Updated: 12/06/18 1:12 PM Care Coordination: Currently | | | engaged in mental health services with [email or web address].? Please contact | | | [email or web address] for mental health concerns.? [place] office: [phone]. | | | These are guidelines and the provider should exercise clinical | | | judgment when providing care. Care History Medical/Surgical | | | 08/15/19 12:00 AM [facility] Patient was seen outside | | | of walk in clinic hours.? Advised patient to follow up with PCP | | | Aviva Bolivar, patient agreed.? Has annual?WNC?exam with | | | Devendra on 10/25/2019 Flags [place] Disparity [place] - | | | [place] Dis[place] to help | | | support Medicaid members with mental illness. [facility] | | | Authority uses claims data [...] weekly. | | | / Attributed By: [place] [facility] ([facility]A) / Attributed On: | | | 08/29/2019 Prescription Drug Report (12 Mo.) PDMP query found | | | no report. E.D. Visit Count (12 mo.) Facility Visits [place] | | | [facility] 2 [facility] 6 Total | | | 8 Note: Visits indicate total known visits. Recent Emergency | | | Department Visit Summary Date Facility City State Type Diagnoses or | | | Chief Complaint Sep 27, 2019 [facility] | | | [place] Emergency 10,800. Test Sep 22, 2019 [facility] | | | [place] Emergency Proc/trtmt not crd out bec | | | pt decision for unsp reasons Acute pharyngitis, unspecified | | | Aug 14, 2019 [facility] [place] Emergency Anxiety | | | disorder, unspecified Allergy status to other antibiotic agents | | | status Other snf (current) drug therapy Bee allergy | | | status Allergy status to narcotic agent status Allergy | | | status to penicillin Dizziness and giddiness Major | | | depressive disorder, single episode, unspecified Jul 30, 2019 [facility] | | | [place] Emergency Nausea with vomiting, | | | unspecified Unspecified asthma, uncomplicated Anxiety | | | disorder, unspecified Other snf (current) drug therapy | | | Allergy status to other antibiotic agents status Bee allergy | | | status Allergy status to penicillin Bipolar disorder, | | | unspecified Allergy status to narcotic agent status May 09, | | | 2018 [facility] [place] Emergency | | | 10,800. Back Pain 18,400. Abrasion of unspecified back wall of | | | thorax, [facility] [place] [place] [facility] | | [facility] [...] lower leg, initial encounter December 19, [address] [facility] [facility] | | | [place] Emergency Other skin changes Dec 06, 2018 [facility] | | | [place] Emergency Allergy status to [...] KATTY- Nurse | | | Practitioner: Women's [employer] Feb 17, | | | 2018 - Current [employer] Portal This patient has registered | | | at the [facility] Emergency Department | | | For more information visit: | | | [email or web address] | | | [email or web address] PLEASE NOTE: 1. Any care recommendations [...] or completeness of information provided. ? 2020 [employer] | | | [employer] - [employer] | | + + + + + | Procedure Note | + + | Service Account, Rtf Results Inbound - 09/27/2019 4:48 PM PST Formatting of this | | note might be different from the original.COLLECTIVE?NOTIFICATION?09/27/2019 | | 16:45?ROSE FERNANDO? Met 5 Visits In 12 Months Has | | GuidelinesSecurity and SafetyNo recent Security Events currently on fileED Care | | Guidelines from [email or web address] - [place] Updated: 12/06/18 1:12 PM Care | | Coordination:Currently engaged in mental health services with [email or web address].? Please contact | | [email or web address] for mental health concerns.? [place] office: [phone].These are | | guidelines and the provider should exercise clinical judgment when providing care.Care | | HistoryMedical/Bpirjtzg27/31/19 12:[facility].? Advised patient to follow up with PCP Aviva Bolivar, | | patient agreed.? Has annual?WNC?exam with Dr. Ramsay on 10/25/2019Flags [place] ED | | Disparity Measure - [place] Dis[place]) to help | | support Medicaid members with mental illness. [facility] uses claims data | | with a 36-month rolling look back period to identify members who have had two or more | | diagnoses of mental illness (does not need to be primary) in any setting (e.g. ED, | | Inpatient, primary care). Flagged members are included in the ED Disparity Measure | | denominator population. Flags are updated weekly. / Attributed By: [place] [facility] | | Authority (OHA) / Attributed On: 08/29/2019 Prescription Drug Report (12 Mo.)PDMP query | | found no report.E.D. Visit Count (12 mo.)Facility Visits [facility] | | [place] 2 [facility] 6 Total 8 Note: Visits indicate total known | | visits. Recent Emergency Department Visit SummaryDate Facility City State Type | | Diagnoses or Chief Complaint Sep 27, 2019 [facility] [place] | | Emergency 10,800. Test Sep 22, 2019 [facility] [place] Emergency | | Proc/trtmt not crd out bec pt decision for unsp reasons Acute pharyngitis, | | unspecified Aug 14, 2019 [facility] [place] Emergency Anxiety disorder, | | unspecified Allergy status to other antibiotic agents status Other snf | | (current) drug therapy Bee allergy status Allergy status to narcotic agent status | | Allergy status to penicillin Dizziness and giddiness Major depressive disorder, | | single episode, unspecified Jul 30, 2019 [facility] [place] Emergency | | Nausea with vomiting, unspecified Unspecified asthma, uncomplicated Anxiety | | disorder, unspecified Other snf (current) drug therapy Allergy status to | | other antibiotic agents status Bee allergy status Allergy status to penicillin | | Bipolar disorder, unspecified Allergy status to narcotic agent status May 09, 2019 | | [facility] [place] Emergency 10,800. Back Pain 18,400. | | Abrasion of unspecified back wall of thorax, init encntr Feb 06, 2019 [facility] [place] | | [place] Emergency Major [...] lower leg, initial encounter December 19, 2018 [facility] [place] | | [place] Emergency Other skin changes Dec 06, 2018 [facility] [place] | | Emergency Allergy [...] JESUS RAMSAY M.D. | | Ihsan LOERA. Agronomy Instructor Sep 21, 2018 - Current AVIVA BOLIVAR, [facility]- Nurse | | Practitioner: Women's Health Feb 17, 2018 - Current | | [employer]This patient has registered at the [facility] | | Emergency Department For more information visit: | | [email or web address] PLEASE | | NOTE: 1. Any care [...] completeness of information | | provided.? 2019 [employer]TM[employer] by [employer]. - [employer] | | Nausea with vomiting, unspecified | | Unspecified asthma, uncomplicated | | Anxiety disorder, unspecified | | Other intermediate designer (current) drug therapy | | Allergy status to other antibiotic agents status | | Bee allergy status | | Allergy status to penicillin | | Bipolar disorder, unspecified | | Allergy status to narcotic agent status | | | |May 09, 2019 [facility] [place] Emergency | | 10,800. Back Pain | | 18,400. Abrasion of unspecified back wall of thorax, init encntr | | | |Feb 06, 2019 [facility] [place] Emergency | | Major [...] | | | |December 19, 2018 [facility] [place] | | Other skin changes | | | |Dec 06, 2018 [facility] [place] | | Allergy [...] Dates | |JESUS RAMSAY M.D. Ihsan LOERA. Agronomy Instructor Sep 21, 2018 - Current | |AVIVA BOLIVAR, KATTY- Nurse Practitioner: Women's Health Feb 17, 2018 - Current | | | |[employer] | |This patient has registered at the [facility] and [facility] [place] Emergency Departmen t | |For more information visit: [email or web address] | |PLEASE NOTE: | | 1. Any [...] information provided. | | | |? 2020 SwiftPayMD(TM) by [employer]. - www.[email or web address] | + + + + + + + | Performing | Address | City/State/Zipcode | Phone Number | | Organization | | | | + + + + + | [facility] | [address] | [place], [place] | [phone] | | TECHNOLOGIES | [address] | [address] | | + + + + + documented in this encounter Visit Diagnoses + + | Diagnosis | + + | Laboratory test - Primary Laboratory examination, unspecified | + + documented in this encounter"
--- OUTSIDE RECORDS SUMMARY | ~2020-03-27 | XMS | Encounter Summary ---
Demographics + + + | Address | [address] | | | [place] [address] | + + + | Home Phone | | + + + | Preferred Language | Unknown | + + + | Marital Status | | + + + | Mandaen Affiliation | NRP | + + + [...] Team Providers + +------+ + | Care Websphere Architect Name | Role | Phone | + [...]
--- OUTSIDE RECORDS SUMMARY | ~2020-03-27 | XMS | Clinical Summary ---
Demographics + + + | Address | [address] | | | [place] [address] | + + + | Home Phone | | + + + | Preferred Language | Unknown | + + + | Marital Status | | + + + | Denominational Affiliation | NRP | + + + | Race | White | + + + | Ethnic Group | Not or | + + + Author + + + | Author | [facility] | + [...] Team Providers + +------+ + | Care Tree Puller Name | Role | Phone | + +------+ + | Miroslava Gonzales NP | PCP | | + +------+ + Source Comments ZENOBIA is fully live on both [facility] Ambulatory and [facility] InPatient.[facility] Allergies + + + + + + [...] | + + + + + | Influenza (Flu) | | 05/24/2018 | | | vaccination (Season | 0 | | | | Ended) | | | | + + + + + | Pneumococcal | Aged Out | | No longer eligible | | vaccination | | | based on patient's | | | | | age to complete this | | | | | topic | + + + + + Results Not on filefrom Last 3 Months Insurance + +--------+ +--------+-------+---------+--------+ | Payer | Benefi | Subscriber | Effect | Phone | Address | Type | | | t Plan | ID | julio | | | | | | / | | Dates | | | | | | Group | | | | | | + +--------+ +--------+-------+---------+--------+ | RADIO PERFORMER MEDICAID | RADIO PERFORMER | xxxxxxxx | Effect | | | [...] | [address] | | [place] | al/Fam | | 2001 | [phone] | [address] [place] | | | josé miguel | | | [address] (Home) | [phone] | + +--------+ +--------+ + +"
--- OUTSIDE RECORDS SUMMARY | ~2020-03-27 | XMS | Clinical Summary ---
Demographics + + + | Address | [address] | | | [place] [address] | + + + | Home Phone | | + + + | Preferred Language | Unknown | + + + | Marital Status | | + + + | Church Affiliation | NRP | + + + [...] Team Providers + +------+ + | Care Med Dir Name | Role | Phone | + +------+ + | Miroslava Gonzales NP | PCP | | + +------+ + Source Comments ZENOBIA is fully live on both [facility] and [facility] Allergies + + + + + + [...] | | | + +--------+ +--------+-------+---------+--------+ | ORDER CLERK MEDICAID | ORDER CLERK | xxxxxxxx | Effect | | | [...] miguel | | | 4 (Home) | [phone] | + +--------+ +--------+ + +"
--- OUTSIDE RECORDS SUMMARY | ~2020-03-27 | XMS | Encounter Summary ---
Demographics + + + | Address | [address] | | | [place] [address] | + + + | Home Phone | | + + + | Preferred Language | Unknown | + + + | Marital Status | | + + + | Zoroastrian Affiliation | NRP | + + + [...] Team Providers + +------+ + | Care Lavender Farm Worker Name | Role | Phone | [...]
--- OUTSIDE RECORDS SUMMARY | ~2020-03-27 | XMS | Encounter Summary ---
Demographics + + + | Address | [address] | | | [place] [address] | + + + | Home Phone | | + + + | Preferred Language | Unknown | + + + | Marital Status | Single | + + + | Moravian Affiliation | Unknown | + + + | Race | Unknown | + + + | Ethnic Group | Unknown | + + + Author + + + | Author | [facility] | | | and [place] | + + + | Organization | [facility] | | | and [...] Team Providers + +------+ + | Care Tobacco Sprayer Name | Role | Phone | + [...] ovarian cyst | | | | [address] | [address] | | | | | [place], [place] | | | | | | [address] | | | | | | [phone] | | | +--------+ + + + [...] on file | | + + + documented as of this encounter ED Notes Conversion Transaction, Provider Unknown - 10/16/2015 2:42 PM PSTFormatting of this note m ight be different from the original. ED Notes by Joe Stiles at 10/16/15 1442 Author: Joe Stiles Service: (none) Author Type: Pig Conveyor Operator Filed: 10/16/151442 Date of Service: 10/16/151441 Status: Signed Load Test Mechanic: Joe Stiles (Pig Conveyor Operator) [facility] , spoke with Acacia in Medical records Joe Stiles 10/16/15 1443 onew kate, Raúl Dobbs MD - 10/16/2015 2:17 PM PST ED Provider Notes by Raúl Kulkarni DO at 10/16/151416 Author: Raúl Kulkarni DO Service: Emergency Department Author Type: Physician Filed: 10/17/15 0850 Date of Service: 10/16/151416 Status: Signed Load Test Mechanic: Raúl Kulkarni DO (Physician) [facility] Department of Emergency Medicine 2:17 PM 10/16/2015 History of Present Illness Patient Identification Rose Fernando is a 15 y.o. female. Patient information was obtained from patient and parent. History/Exam limitations: none. Patient presented to the Emergency Department by: Car (PCP: APOLINAR HILL.) Chief Complaint Chief Complaint Patient presents with Abdominal Cramping ovarian cyst? Seen at [place] [facility] on Wednesday The patient presents with pelvic cramping and pain to [facility]. Onset of symptoms was 2 weeks a go, with a worsening course since that time. Severity described as mild to moderate. The pat ient has ovarian cysts that have burst in past. Patient was seen in the [place] [facility] 3 days ago and a few weeks ago. She was prescribed pain medications and discharged. Patient sandi es nausea, vomiting, fever, chills, SOB and any other symptoms. 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 Past Medical History Diagnosis Date Ovarian cyst Asthma Past Surgical History Procedure Laterality Date Tonsillectomy Adenoidectomy Prior to Admission medications Medication Sig Start Date End Date Taking? Authorizing Provider albuterol (ACCUNEB) 1.25 MG/3ML nebulizer solution Take 1 ampule by nebulization every 6 (s ix) hours as needed for Wheezing. Yes Historical Provider ondansetron (ZOFRAN) 4 MG tablet Take 4 mg by mouth 3 (three) times daily as needed for Karlos sea. Yes Historical Provider traMADol (ULTRAM) 50 MG tablet Take 50 mg by mouth every 6 (six) hours as needed for Pain. Yes Historical Provider Allergies Allergen Reactions Penicillins Hives History Social History Marital Status: Single Spouse Name: N/A Number of Children: N/A Years of Education: N/A Occupational History Not on file. Social History Main Topics Smoking status: Never Smoker Smokeless tobacco: Not on file Alcohol Use: No Drug Use: No Sexual Activity: Not on file Other Topics Concern Not on file Social History Narrative No narrative on file History reviewed. No pertinent family history. Review of Systems Constitutional: Negative for fever, chills Eyes: Negative for vision changes Nose: Negative for congestion, nosebleeds Throat: Negative for sore throat CV/Resp: Negative for chest pain, inoyiahwv-pw-[id number], cough GI: Positive for pelvic pain Negative for abdominal pain, nausea, vomiting, or diarrhea : Negative for urinary problems Musculoskeletal: Negative for back pain, joint pain Skin: Negative for rash Neuro/Psych: Negative for headache Endo/heme/Lymph: Negative for swollen lymph nodes, easy bruising All other systems reviewed and negative except as noted. Physical Exam BP 97/51 mmHg | Pulse 89 | Temp(Src) 97.2 F (36.2 C) | Resp 12 | Wt 59.2 kg (130 lb 8.2 oz) | SpO2 99% Vitals Interpretation: normal. Pulse Oximetry interpretation: Normal General: Alert, no active distress and not requiring any emergent interventions Eyes: Normal inspection, pupils equal and round, non-icteric sclera ENT: Ears normal Nose normal without discharge or drainage Pharynx normal with no exudates or discharge Neck: Normal inspection with no lymphadenopathy Supple Full ROM No carotid bruit with midline trachea Cardiovascular: Normal rate and rhythm, no extra sounds No murmurs rubs or gallops Focal PMI Respiratory: No respiratory distress or wheezing Normal excursion No retractions Abdomen: Soft, non-tender, non-distended Normal active bowel sounds Back: Normal inspection Without tenderness or deformity Skin: Color normal Warm and dry Extremities: PLATA with equal pulses in the upper and lower extremities bilaterally Neuro: No gross motor/sensory deficit GCS 15 No cerebellar deficits Alert and oriented to person, place, time and situation. Medical Decision Making and Emergency Department Course ED Department Course 2:17 PM I consider upper abdominal etiology, acute appendicitis, mesenteric lymphadenitis, diverticulitis, small bowel obstruction, adhesions, ischemia, functional bowel syndrome, ur eterolithiasis, ovarian cyst, ovarian torsion, , ectopic and pelvic infla mmatory disease unlikely as a cause of pelvic pain in this patient. This is a partial list o f diagnoses considered. Will order labs and US. 2:30 PM reviewed labs: unremarkable 3:20 PM Reviewed US: simple L ovarian cyst 3:23 PM Patient reevaluation. I have discussed with the patient follow up recommendations, return precautions and what would be the specific reasons to return immediately to the [facility] department for reevaluation. I have answered the patients questions and addressed thei r concerns to the best of my ability. The patient is agreeable to discharge home, understand s return precautions and has no additional questions nor concerns prior to discharge home. Filed Vitals: 10/16/15 1324 10/16/15 1431 10/16/15 1526 BP: 97/51 102/56 109/74 Pulse: 89 84 89 Temp: 97.2 F (36.2 C) Resp: 12 18 18 Weight: 59.2 kg (130 lb 8.2 oz) SpO2: 99% 98% 99% Records Reviewed Old ED records reviewed (Using the electronic record system of [facility], I car efully reviewed the records with regard to the past medical/surgical history, previous medic ations, and allergies).Nursing notes reviewed for chief complaint, medications, clinical pre sentation and vital signs. Laboratory Evaluation Results Procedure Component Value Ref Range Date/Time Urinalysis (reflex to microscopic/reflex to culture) [[id number]] (Abnormal) Collected: 10/16/15 1403 Order Status: Completed Specimen Information: Urine, Clean Catch Updated: 10/16/15 14 20 COLOR UA STRAW CLARITY CLEAR Specific [place], UA 1.008 1.002 - 1.030 LEUKOCYTE ESTERASE NEGATIVE NEGATIVE NITRITE NEGATIVE NEGATIVE UROBILINOGEN NORMAL <1.1 mg/dL PROTEIN NEGATIVE NEGATIVE mg/dL PH,URINE 6.0 5.0 - 8.0 BLOOD MODERATE (A) NEGATIVE KETONES NEGATIVE NEGATIVE mg/dL BILIRUBIN NEGATIVE NEGATIVE GLUCOSE NEGATIVE NEGATIVE mg/dL WBC NONE SEEN 0 - 5 /hpf RBC 3-5 0 - 5 /hpf BACTERIA 1+ (A) NONE SEEN EPITHELIAL 3-5 /lpf Mucus, UA 1+ I personally reviewed the lab results and they have been posted to the chart. Pertinent po sitive and negative findings have been addressed appropriately. Radiology and EKG Evaluation Imaging Results Ultrasound pelvis transabdominal (Final result) Result time: 10/16/15 15:15:44 Final result by Rad Results In [place] (10/16/15 15:15:44) Impression: 1. There is a simple appearing cyst of the left ovary. 2. No acute process is identified involving the uterus or ovaries. Narrative: ROSE FERNANDO 1999 US PELVIS TRANSABDOMINAL 10/16/2015 3:09 PM HISTORY: Pelvic pain with history of ovarian cysts, left lower quadrant COMPARISON: None. TECHNIQUE: Transabdominal pelvic ultrasound performed, grayscale and color flow evaluation. FINDINGS: The bladder has a normal morphology. No focal bladder wall thickening is present. The uterus appears mildly anteverted in position measuring 7.1 x 3.1 x 4.2 cm. No abnormal vascularity of the endometrial complex is noted which measures 8.3 mm in thickness. The righ t ovary measures 2.4 x 1.9 x 3.6 cm. Normal arterial and venous waveforms are documented. Th e left ovary measures 2.5 x 4.4 x 4.1 cm. Normal arterial and venous waveforms are seen in t he left ovary. There is a round anechoic appearing structure within the left ovary probably reflective of a simple cyst which requires no further follow-up. There is no free fluid in t he pelvis. ED Diagnoses Final diagnoses Chronic pelvic pain in female Recurrent Left ovarian cyst Disposition: ED Disposition Discharge Condition at discharge: Stable Follow-up Information Follow up With Details Comments Contact Info Apolinar Hill MD In 1 week [address] [place] [id number] [facility] Emergency Department If symptoms worsen [address] [place] [id number] Discharge Medications: Discharge Medication List as of 10/16/2015 3:24 PM Procedures Additional Documentation Procedures Attending Note: Documentation assistance provided by Shonna Raines (Scribe). Information recorded by the scribe has been reviewed and validated by me. Ruth valdez with its contents. DO Raúl Waggoner DO 10/17/15 0850 onversion Transac tion, Provider Unknown - 10/16/2015 2:12 PM PSTFormatting of this note might be different f rom the original. ED Notes by Elvis Jules RN at 10/16/151411 Author: Elvis Jules RN Service: (none) Author Type: Registered Nurse Filed: 10/16/151412 Date of Service: 10/16/151411 Status: Signed Load Test Mechanic: Elvis Jules RN (Registered Nurse) Pt states having recurrent abd pain to [facility]. Seen at [facility] multiple times and dx with ovarian Cysts. States has been taking tramadol for pain but isn't helping. Elvis Jules RN 10/16/151412 docume nted in this encounter Plan of Treatment Not [...] Performed At | + + + | ROSE FERNANDO 1999 US PELVIS TRANSABDOMINAL 10/16/2015 | [...] Rad Conversion - 03/30/2019 5:46 PM PDT ROSE Wilhelm GAED1999US PELVIS | | TRANSABDOMINAL10/16/2015 3:09 PM HISTORY: [...] EXTERNAL | | | | performed at [facility];[address] | | LAB | | | | [address];[place] | | | | | | [address] | | | | + + + + + + | Clarity, | CLEARComment: Testing | | EXTERNAL | | | Urine | performed at [facility];[address] | | LAB | | | | [address];[place] | | | | | | [address] | | | | + + + + + + | Specific | 1.008Comment: Testing | 1.002 - 1.030 | EXTERNAL | | | [place], | performed at [facility];[address] | | LAB | | | Urine | [address];[place] | | | | | | [address] | | | | + + + + + + | Leukocyte | NEGATIVEComment: Testing | | EXTERNAL | | | Esterase, | performed at [facility];[address] | | LAB | | | Urine | [address];[place] | | | | | | [address] | | | | + + + + + + | Nitrite, | NEGATIVEComment: Testing | | EXTERNAL | | | Urine | performed at [facility];[address] | | LAB | | | | [address];[place] | | | | | | [address] | | | | + + + + + + | Urobilinoge | NORMALComment: Testing | mg/dL | EXTERNAL | | | n, Urine | performed at [facility];[address] | | LAB | | | | [address];[place] | | | | | | [address] | | | | + + + + + + | Protein, | NEGATIVEComment: Testing | mg/dL | EXTERNAL | | | Urine | performed at [facility];[address] | | LAB | | | | [address];[place] | | | | | | [address] | | | | + + + + + + | pH, Urine | 6.0Comment: Testing | 5.0 - 8.0 | EXTERNAL | | | | performed at [facility];[address] | | LAB | | | | [address];[place] | | | | | | [address] | | | | + + + + + + | Blood, | MODERATE (A)Comment: | | EXTERNAL | | | Urine | Testing performed at | | LAB | | | | [facility];[address];[place] [address] | | | | + + + + + + | Ketones | NEGATIVEComment: Testing | mg/dL | EXTERNAL | | | | performed at [facility];[address] | | LAB | | | | [address];[place] | | | | | | [address] | | | | + + + + + + | Bilirubin, | NEGATIVEComment: Testing | | EXTERNAL | | | Urine | performed at [facility];[address] | | LAB | | | | [address];[place] | | | | | | [address] | | | | + + + + + + | Glucose, | NEGATIVEComment: Testing | mg/dL | EXTERNAL | | | Urine | performed at [facility];[address] | | LAB | | | | [address];[place] | | | | | | [address] | | | | + + + + + + | WBC, UA | NONE SEENComment: | 0 - 5 /hpf | EXTERNAL | | | | Testing performed at | | LAB | | | | [facility];[address];[place] [address] | | | | + + + + + + | RBC, UA | 3-5Comment: Testing | 0 - 5 /hpf | EXTERNAL | | | | performed at [facility];[address] | | LAB | | | | [address];[place] | | | | | | [address] | | | | + + + + + + | Bacteria, | 1+ (A)Comment: Testing | | EXTERNAL | | | UA | performed at [facility];[address] | | LAB | | | | [address];[place] | | | | | | [address] | | | | + + + + + + | Epithelial | 3-5Comment: Testing | /lpf | EXTERNAL | | | Cells | performed at [facility];[address] | | LAB | | | | [address];[place] | | | | | | [address] | | | | + + + + + + | Mucus, | 1+Comment: Testing | | EXTERNAL | | | Urine | performed at [facility];[address] | | LAB | | | | [address];[place], [place] | | | | | | [address] | | | | + + + [...]
[2020-03-28] MEDS ORDERED: PRILOSEC OTC20 MG PO (01:40)
== END 2020-03-28 01:50 | disposition home or self-care (01) ==
LOC: ED 23:50
DX: K27.9 Peptic ulcer, site unspecified, unspecified as acute or chronic, without hemorrhage or perforation (principal); Z88.0 Allergy status to penicillin; Z88.8 Allergy status to other drugs, medicaments and biological substances; Z88.1 Allergy status to other antibiotic agents; Z88.5 Allergy status to narcotic agent; Z91.030 Bee allergy status
CPT/HCPCS: 80053; 83690; 83735; 85025; 96374; 96375; 99284-25; J1885; J2405

== ENCOUNTER 2020-06-25 20:59 | Observation (INO) | payer OTHER ==
[~2020-06-25] VITALS: Ht 157.5 cm; Wt 83.0 kg
[~2020-06-25 20:59] MED LIST changes: +PRILOSEC OTC20 MG PO
[2020-06-25] MEDS ORDERED: SERTRALINE HCL50 MG PO (21:24)
[2020-06-25] MEDS ORDERED: ALBUTEROL2.5 MG/3 M INH (21:25)
[2020-06-25] MEDS ORDERED: OMEPRAZOLE20 MG PO (21:25)
--- NOTE | 2020-06-26 00:30 | NUR ---
pt ARRIVES TO [place] VIA STRETCHER. ABLE TO TRANSFER SELF TO HOSPITAL BED INDEPENDENTLY. NO C/O PAIN OR NAUSEA. ORIENTATION TO ROOM PROVIDED. IVF INFUSING WNL ORDERED. SBA TO RESTROOM FOR VOID AND BACK TO BED. CALL LIGHT IN REACH.
--- NOTE | 2020-06-26 01:28 | NUR ---
PATIENT RESTING QUIETLY NOW, PAIN UNDER CONTROL FROM MEDS GIVEN IN THE ER. IV PATENT AND INFUSING AT 125MLS/HR. FRIEND AT BEDSIDE AND IS CHANGING OUT WITH PATIENT'S BOYFRIEND. PATIENT WAS HAVING A LITTLE ANXIETY PER PATIENT AND FELT A LITTLE SHORT OF BREATH, LUNGS TOTALLY CLEAR, SATS 100% ON RA, BUT PATIENT PLACED ON 2L/NC FOR COMFORT AND SAYS SHE IS DOING OK NOW. CALL LIGHT IN REACH, PATIENT IS NPO.
--- NOTE | 2020-06-26 02:42 | NUR ---
PATIENT VISITING IN ROOM WITH HER FRIEND AND A PUPPY, PATIENT'S ANXIETY REMAINS UNDER CONTROL WITH VISITORS AND 2L/NC. CALL LIGHT IN REACH.
--- NOTE | 2020-06-26 03:00 | NUR ---
CALL LIGHT ANSWERED. PT UP TO BR WITH SBA TO VOID 350 ML. BACK TO BED, WOLF WELL. SCD'S IN PLACE. FRIEND AT BEDSIDE WITH SERVICE DOG. PT REQUESTING PRN FOR PAIN. PRIMARY RN NOTIFIED.
--- NOTE | 2020-06-26 03:09 | NUR ---
PATIENT GIVEN 0.6MG IV DILAUDID FOR 4/10 RUQ PAIN. PATIENT'S SCD'S WERE ALSO ADJUSTED PER PATIENT REQUEST. CALL LIGHT IN REACH AND PATIENT'S FRIEND AT BEDSIDE.
--- NOTE | 2020-06-26 03:43 | NUR ---
PATIENT RESTING QUIETLY NOW AFTER DILAUDID, FRIEND AT BEDSIDE, CALL LIGHT IN REACH.
--- NOTE | 2020-06-26 04:20 | NUR ---
PATIENT'S PAIN IS 1/10 NOW AND PATIENT GETTING UP TO THE BATHROOM WITH November.
--- NOTE | 2020-06-26 04:38 | NUR ---
PATIENT RESTING QUIETLY VISITING WITH FRIEND AND THERAPY DOG. CALL LIGHT IN REACH.
--- NOTE | 2020-06-26 06:05 | NUR ---
PATIENT'S PAIN HAS BEEN WELL CONTROLLED FROM THE DILAUDID SHE GOT IN THE ER AND ONE DOSE HERE OF 0.6MG IV. PATIENT HAS NOT SLEPT MUCH, HAS BEEN VISITING WITH A FRIEND AND HER THERAPY DOG. PATIENT NPO AND VOIDING QUANTITY SUFFICIENT. VS HAVE BEEN STABLE. PATIENT BRIEFLY WORE 2L/NC FOR SOME ANXIETY BUT IS OFF THAT AND SATING WELL ON ROOM AIR. CALL LIGHT IN REACH.
--- NOTE | 2020-06-26 07:15 | NUR ---
THIS RN RECIEVED REPORT FROM KATHY RN. THIS RN IN TO MEET PT AT THIS TIME. PT VERY DROWSY, UNABLE TO ANSWER ALL THIS NURSES QUESTIONS THIS AM. PT JIMENA AMOR AT BEDSIDE WITH PTS EMOTIONAL SUPPORT DOG- ZEPHYR.
--- NOTE | 2020-06-26 08:00 | NUR ---
PATIENT RESTING IN BED, EYES CLOSED. DAD IN ROOM. HENRIETTA MITCHELL UPDATED. CALL LIGHT WITHIN REACH. NO OTHER NEEDS AT THIS TIME
--- NOTE | 2020-06-26 08:15 | NUR ---
THIS RN INTO PTS ROOM TO GET PT READY TO GO TO SURGERY. PT APPEARED TO BE VERY ANXIOUS AT THIS TIME. THIS RN ASKED PT IF SHE HAD ANY QUESTIONS ABOUT SURGERY, THIS RN ABLE TO HELP PT VISUALIZE WHAT IT WILL LOOK LIKE AFTER SURGERY WAS COMPLETE. PTS FRIEND MT DISCUSSED WITH THIS RN THAT WHEN CAME IN THE ROOM TO DISCUSS THE SURGERY HE KICKED THE BED TO WAKE HER, PTS FRIEND STATED BY DOING THIS IT ESCALATED PTS ANXIETY DUE TO HER PTSD. THIS RN ABLE TO GET TO CALM DOWN A BIT BY USING THERAPEUTIC COMMUNICATION. PT VERY ANXIOUS PRIOR TO LEAVING FOR SURGERY.
[2020-06-26] MEDS ORDERED: VENTOLIN HFA18 GM INH (08:59)
--- NOTE | 2020-06-26 09:22 | NUR ---
PATIENT IN SURGERY. I&O DONE.
--- NOTE | 2020-06-26 09:50 | NUR ---
Spoke with friend, Mehdi. Pt is in surgery. He states pt lives in a Duplex with 3 roommates. Pt is on service with [facility], TANF and food stamps. She has a 1/12 yo child. He denies need for food. Rose does not drive and he transports her. Number given for [facility] free medical transport for OHP pts. He denies any need for dc and will take pt home. Per Mehdi, pt was planning on dc to home today.
--- NOTE | 2020-06-26 10:17 | NUR ---
06/26/20 1017 Sheets,Marilee 1008 PT ARRIVED TO PACU ON 6L VIA MASK, RESP EVEN AND UNLABORED WITH ORAL AIRWAY IN PLACE. PT NONAROUSBALE. VSS.
--- NOTE | 2020-06-26 10:50 | NUR ---
PT ARRIVED BACK FROM SURGERY AT THIS TIME. PT VERY DROWSY AND BARELY OPENING HER EYES. PT DID START CRYING OUT IN PAIN UPON ARRIVAL, ARACELIS RN FROM PACU STATED THAT PT HAD BEEN FINE IN PACU. PT HAS 4 LAP SITES. SLIGHT SEROSANGUINOUS DRAINAGE AT ALL SITES. THIS RN PROVIDED PT WITH 0.5MG OF DILAUDID FOR PTS PAIN
--- NOTE | 2020-06-26 11:50 | NUR ---
THIS RN IN PTS ROOM TO DO #2 POSTOPP CHECK. PT STATING THAT HER PAIN IS NOT CONTOLLED, THIS RN PROVIDED PT WITH 1 NORCO. PT ABLE TO TAKE A COUPLE BITES OF JELLO AND APPLESAUCE AND SIPS OF WATER ALL 4 LAP SITES ARE UNCHANGED AT THIS TIME. PT ABLE TO FALL ASLEEP PRIOR TO THIS RN LEAVING THE ROOM
--- NOTE | 2020-06-26 12:42 | NUR ---
Uses call light for assistance to BR. Stands up and begins hyperventilating. Becomes lightheaded. Sat on edge of bed for 2-3 minutes to slow breathing with multiple prompts to take deep breaths. Stands and ambulates to bathroom with standby assist. Continent of urine. Gown changed, small amount of sanguinous drainage on gown, patient sees it and begins hyperventilating again. INstructed to take slow deep breaths. Stands and begins ambulating back to bed. Begins hyperventilating once more and states she feels dizzy, closing eyes. Multiple prompts to take deep breaths and keep eyes open. Dizziness passes and begins ambulating to bed. Repositions self.
--- NOTE | 2020-06-26 12:50 | NUR ---
THIS RN IN PTS ROOM TO DO POST OPP #3 CHECK. PT APPEARS TO BE RESTING COMFORTABLY, PT DID REQUEST A WARM PACK. THIS RN ABLE TO PROVIDED THIS. PT DID GET UP TO THE RESTROOM TO VOID, QUANITY SUFFIENT. ALL LAPROSCOPIC SITES UNCHANGED
--- NOTE | 2020-06-26 13:50 | NUR ---
THIS RN IN PTS ROOM TO CHECK ON PT FOR POSTOPP #4 CHECK. PT ASKING FOR ANOTHER HEAT PAD AND ICE PAD, THIS RN ABLE TO PROVIDE PT WITH THESE. PTS INSCION SITES HAVE NOT CHANGED, DRAINED FROM ARRIVAL TO FLOOR IS NOW DRY.
--- NOTE | 2020-06-26 14:00 | NUR ---
PATIENT RESTING IN BED. VISITOR AND RN IN ROOM. VITAL SIGNS DONE BY RN. I&O DONE. CALL LIGHT WITHIN REACH. NO OTHER NEEDS AT THIS TIME
--- NOTE | 2020-06-26 14:35 | NUR ---
PT JUST RETURNED FORM PACU, ADALBERTO IYER ATTENDING. WILL CHECK BACK AGAIN
--- NOTE | 2020-06-26 15:00 | NUR ---
THIS RN IN PTS ROOM DUE TO PT NEEDING TO VOID. PT NEEDED ASSISTANCE TO STAND AND REASURANCE TO DEEP BREATHE TO PREVENT HER FROM HYPERVENITLATING. PT THEN TRANSFERRED TO THE CHAIR. PT TOLERATED WELL AND PROPPED UP WITH PILLOWS. PT THEN ORDERED SOME FOOD AND TOLERATED EATING WITH NO NAUSEA
--- NOTE | 2020-06-26 15:30 | NUR ---
THIS RN IN PTS ROOM PER PT REQUEST. PT STATED THAT SHE FELT THAT SHE HAD POPPED A STITCH. THIS RN INSPECTED ALL 4 SITES, ALL LOOK WNL.
--- NOTE | 2020-06-26 17:21 | NUR ---
PATIENT RESTING IN BED. VITAL SIGNS AND I&O DONE. CALL LIGHT WITHIN REACH. NO OTHER NEEDS AT THIS TIME
--- NOTE | 2020-06-26 18:15 | NUR ---
WITH PERMISSION FROM ESE KRUGER RN, THIS RN WHEELED PT OUT TO THE LOBBY SO SHE COULD SAY HI TO HER 2 YEAR OLD SON. PT STAYED IN HER WHEELCHAIR, WITH A MASK ON AND DID NOT LIFT HIM. THIS RN SUPERVISED PT DURING THE PROCESS. PT VERY APPRECTIVE OF THIS. PT RETURNED TO ROOM AT 1830 AND IN BED WITH CALL LIGHT WITHIN REACH
--- NOTE | 2020-06-26 19:18 | NUR ---
REPORT RECEIVED FROM SHIREEN GLOVER, PT AWAKE IN BED, ALERT AND ORIENTED. VISITOR AT BEDSIDE. PT STATES NO NEEDS AT THIS TIME, CALL LIGHT IN REACH, FINISHING DINNER. WILL CONT TO MONITOR.
--- NOTE | 2020-06-26 21:04 | NUR ---
IV PUMP ALARMING, MORE FLUID ADDED TO PUMP. pt RESTING IN BED WITH EYES CLOSED. BREATHING UNLABORED. FRIEND AND SERVICE DOG IN ROOM. LIGHTS OFF IN ROOM.
--- NOTE | 2020-06-26 21:30 | NUR ---
ASSESSMENT COMPLETE, PRN PAIN MEDICATIONS ADMINISTERED FOR 8/10 PAIN. PATIENT AMBULATED TO BR TO VOID. CALL LIGHT IN REACH, NO OTHER NEEDS REPORTED AT THIS TIME.
--- NOTE | 2020-06-27 00:20 | NUR ---
ROUNDED ON PATIENT, AWAKE IN BED, STATING PAIN IS UNRELENTING. AMBULATED TO BR TO VOID. IVF INFUSING WNL. PRN TYLENOL AND MOTRIN ADMINISTERED FOR 9/10 PAIN. WATER REFRESHED, WARM BLANKET PROVIDED, TEMPERATURE ADJUSTED, REPOSITIONED IN BED WITH PILLOWS. CALL LIGHT IN REACH, WILL CONTINUE TO MONITOR.
--- NOTE | 2020-06-27 01:10 | NUR ---
PT USED HER CALL LIGHT TO GET A WARM BLANKET FOR HER GUEST. I GAVE HIM ONE. THEY NEED NOTHING MORE AT THIS TIME.
--- NOTE | 2020-06-27 02:40 | NUR ---
VITALS AND I&OS DONE AND CHARTED. BEDSIDE TABLE AND CALL LIGHT IN REACH.
--- NOTE | 2020-06-27 03:10 | NUR ---
VITALS COMPLETE, ASSESSMENT COMPLETE. PATIENT LAYING IN BED, EYES CLOSED, LIGHTS OFF. IVF INFUSING WNL. BREATHING EVEN AND UNLABORED. CALL LIGHT IN REACH, NO NEEDS AT THIS TIME. WILL CONTINUE TO MONITOR.
--- NOTE | 2020-06-27 07:49 | NUR ---
this rn received report from herb mayo and benja mayo. pt appears to be resting comfortably this am with respirations noted
--- NOTE | 2020-06-27 08:26 | NUR ---
PT CALL LIGHT ON. IV PUMP ALARMING. FLUID BAG COMPLETE. NEW FLUID BAG HUNG (SEE EMAR). 1 PERSON STAND BY ASSIST UP TO RESTROOM. PT VOIDS WITHOUT ISSUE. PT BACK TO BED. PT EATING BREAKFAST. WITH HEAD OF BED AT 60 DEGREES. PT ADVISED TO GET UP TO CHAIR, PT DECLINES. PT REPORTS 7/10 ACHING PAIN IN ABDOMEN (SEE MAR FOR MEDICATON GIVEN). PT DENIES NASUEA. NO ADDITIONAL REQUESTS OR COMPLAINTS. FATHER AT BEDSIDE. CALL LIGHT WITHIN REACH.
--- NOTE | 2020-06-27 10:00 | NUR ---
THIS RN IN PTS ROOM TO DISCUSS WITH PT THAT SHE NEEDS TO GET UP. THIS RN APPLIED PTS SCDS AND DISCUSSED WITH PT THAT SHE NEEDS TO DO ANKLE PUMPS IF SHE IS GOING TO REFUSE HER MEDS THIS AM. PT STATED THAT SHE CAN DO THAT PTS FRIEND MT IN ROOM AT THIS TIME
--- NOTE | 2020-06-27 11:17 | NUR ---
PT UP WALKING AT THIS TIME WITH MICHELLE MÉNDEZ. PT APPEARS TO BE TOLERATING THE WALK WELL DESPITE PT STARING AT THIS RN AND GRABBING HER ABDOMEN, PT APPEARS TO BE STEADY ON HER FEET AT THIS TIME.
--- NOTE | 2020-06-27 11:26 | NUR ---
PATIENT WALKED ONE LAP AROUND MED/SURG. SHE WAS ABLE TO TOLERATE THE PAIN THROUGH OUT HALF THE WALK. WHEN PATIENT WAS GETTING CLOSER TO THE NURSES STATION SHE STARTED TO EXPRESS MORE PAIN.
--- NOTE | 2020-06-27 13:21 | NUR ---
this rn in pts room to check on pt to see his she needs more pain meds. pt appears to be resting comfortably at this time with respirations noted. pts blinds open, scds are on and zephyr pts emotional support dog laying at her feet
--- NOTE | 2020-06-27 14:15 | NUR ---
THIS RN IN PTS ROOM PER PT REQUEST. PT STATING THAT HER PAIN IS 8/10. PT ABLE TO CARRY ON A CONVERSATION WITH THIS RN WITHOUT GRIMACING IN PAIN. THIS RN ABLE TO PROVIDE PT WITH 1 NORCO AT THIS TIME. THIS RN DISCUSSED WITH PT THAT IN AN HOUR THIS RN WILL BE BACK IN PTS ROOM TO HELP HER WALK IN THE HALLS, PT NOT THRILLED BY THIS IDEA BUT AGREEABLE
--- NOTE | 2020-06-27 15:15 | NUR ---
THIS RN IN PTS ROOM TO GET PT UP TO WALK. PT TOLERATED WALK WELL. PT ABLE TO STAND AT NURSES STATION DURING WALK WHILE STAFF PET HER DOG THAT ACCOMPANIED PT ON HER WALK. PT BACK TO BED WITH SCDS ON, BLINDS OPEN, CALL LIGHT WITHIN REACH.
--- NOTE | 2020-06-27 16:12 | PATH ---
[facility] [address] [place], [place] [address] Signed SPECIMEN(S): A GALLBLADDER AND GALLSTONES SPECIMEN SOURCE: A. GALLBLADDER AND GALLSTONES CLINICAL HISTORY: Acute cholecystitis. FINAL PATHOLOGIC DIAGNOSIS: Gallbladder, cholecystectomy: - Chronic cholecystitis with cholesterolosis. - Cholelithiasis. - Two lymph nodes with no evidence of malignancy. NAL:cml:C2NR MICROSCOPIC EXAMINATION: Histologic sections of all submitted blocks are examined by light microscopy. These findings, together with the gross examination, support the pathologic diagnosis. GROSS DESCRIPTION: The specimen, labeled "KG, gallbladder," is received in formalin and consists of Specimen: Previously opened gallbladder. Dimensions: 6 cm in length and 3.8 cm in inner circumference. Serosa: Violaceous and smooth. Cystic Duct: Unobstructed. Calculi: Two yellow-green gallstones within the container that measure 0.8 cm in diameter each. Mucosa: [place], velvety. Wall thickness: 0.6 cm. Lymph node: Two possible pericystic lymph nodes are grossly identified and they measure 0.6 and 0.8 cm in greatest dimension. One possible lymph node is inked and both of them are bisected and entirely submitted in a single cassette (A2). Additional: None. Rhinologist sections are submitted in cassettes (A1-A2). JS (under the direct supervision of a pathologist) The Gross Description was prepared using a voice recognition system. The report was reviewed for accuracy; however, sound-alike word errors, addition and/or deletions may occur. If there is any PATIENT NAME: CARTER FERNANDO PATHOLOGY DATE OF : [birth year] REPORT #: [id number] PHYSICIAN: JACINTO AMADO PCP: AGUSTÍN GONCALVES REPORT IS CONFIDENTIAL AND NOT TO BE RELEASED WITHOUT AUTHORIZATION [facility] [address] [place], [place] [address] Signed question about this report, please contact Client Services. PERFORMING LABORATORY: The technical component was performed by [place] [address] (Yard Clerk: Mirlande Roth MD; CLIA# [id number]). Professional interpretation was performed by [employer] [facility], [address] [address] (CLIA# [id number]). Diagnostician: Jennifer Dillard MD Pathologist Electronically Signed 06/27/2020 Copies: ~ PATIENT NAME: CARTER FERNANDO PATHOLOGY DATE OF : [birth year] REPORT #: [id number] PHYSICIAN: JACINTO AMADO PCP: AGUSTÍN GONCALVES REPORT IS CONFIDENTIAL AND NOT TO BE RELEASED WITHOUT AUTHORIZATION
--- NOTE | 2020-06-27 17:45 | NUR ---
THIS RN IN PTS ROOM TO CHECK VITALS AND GET PT UP TO SHOWER PER PT REQUEST. WHEN TAKING PTS VITALS PTS SBP WAS 89 WHICH FALLS IN THE CALL PARAMETERS FOR . THIS RN CALLED MD TO ALERT HIM TO PTS VITALS AT THIS TIME. MD STATED THAT HE WAS ON THE WAY DOWN TO THE FLOOR ANYWAYS. WHEN MD ARRIVED TO FLOOR HE WENT TO SEE PT AND VERBALLY STATED TO THIS RN TO BOLUS THE REST OF HER LR BAG THAT WAS HANGING (ABOUT 275ML). THIS RN DID SO AND THEN PT WANTED TO GET UP TO SHOWER. THIS RN RECHECKED PTS BP WHILE BOLUS WAS INFUSING AND SBP WAS 102. PT STATED THAT SHE FELT A BIT DIZZY BUT WAS ABLE TO WALK IN A STRAIGHT LINE TO THE RESTROOM TO VOID.
--- NOTE | 2020-06-27 18:21 | HP ---
[facility] [address] [place], [place] [address] Signed ADMISSION DATE: 06/25/2020 REASON FOR ADMISSION: Acute calculous cholecystitis. HISTORY: A somewhat obese 19-year-old white woman has numerous psychologic problems including self described PTSD, "borderline personality." She is accompanied by a "friend" of whom there are several people in her household. She has been having episodic right upper abdominal pain on multiple occasions in the past and presented to the emergency room last night, evaluated by Dr. Benjamin with complaints of right upper abdominal pain. She has had CT scan imaging in the past including September 20, 2018, which showed gallstones and mild splenomegaly and questionable tiny abscess in the anterior abdominal wall. She underwent ultrasound evaluation last night, which showed a hydropic gallbladder with gallstones. The patient this morning continues to feel uncomfortable in the right upper abdomen. PAST SURGICAL HISTORY: Includes with hemorrhage requiring Bakri balloon. This was with Dr. Mauricio Ramsay in August of 2018. She has a 2-year-old son, who remains healthy otherwise. PAST MEDICAL HISTORY: Does include psychologic issues as previously noted. MEDICATIONS: At the time of admission included albuterol, omeprazole, and sertraline. Her primary care provider is identified as DANDRE Reina. REVIEW OF SYSTEMS: She denies any shortness of breath or chest pain. Her pain is restricted to the right upper abdomen. She denies any hematuria, dysuria. She was concerned she may be . However, beta HCG obtained in the emergency room shows no evidence of . PHYSICAL EXAMINATION: GENERAL: Somewhat obese white woman, accompanied by a small black dog named [place] and Electronically Signed By: LUZ MARIA LOUIE MD 06/27/20 1821 PATIENT NAME: CARTER FERNANDO HISTORY AND PHYSICAL DATE OF : [birth year] REPORT #: [id number] PHYSICIAN: LUZ MARIA LOUIE MD PCP: AGUSTÍN GONCALVES REPORT IS CONFIDENTIAL AND NOT TO BE RELEASED WITHOUT AUTHORIZATION [facility] [address] [place], [place] [address] Signed her "best friend" male group controller. She has a very flat affect. She is said to be "not a morning person." HEENT: Mucous membranes are considered moist. Trachea is midline. CHEST: Clear. HEART: Regular without murmur. ABDOMEN: Somewhat obese. There is marked tenderness in the right upper quadrant. EXTREMITIES: Show no clubbing, cyanosis, or edema. LAB STUDIES: From 2150 last night showed a white count of 5.2, hematocrit 40.7, platelets 219,000. Chem profile is normal. Glucose is 113. Liver enzymes normal. Lipase 23. Beta HCG negative. Urinalysis was essentially normal. She did have 5 red cells per high-power field. Ultrasound images and report were reviewed. Noted as a gallbladder that has a thickened wall and dilation and stones, but shadow. Findings are consistent with acute calculous cholecystitis. ASSESSMENT: The patient has acute calculous cholecystitis by clinical and ultrasonographic criteria. She has been having symptoms for at least 24 hours and possibly longer already. She has had episodes of similar symptoms in the past. Evaluation including CT scan in the past showing gallstones also. At this time, she has apparently good rehydration. I would recommend cholecystectomy. Discussed with her and her significant other, a plan of therapy to include laparoscopic cholecystectomy, possible open procedure. The risks of bleeding, infection, bile duct injury, need for open procedure, and so forth were all reviewed in detail. Although, the patient has flat affect. She does understand what they are talking about and has no further questions and agrees to proceed. We will get this done this morning hopefully. Her listed allergies include penicillins, codeine, amoxicillin, bee sting (venom from wasps), vancomycin, "lotion", and pepperoni. MD PRATIBHA Sarabia/MODL /[id number] Electronically Signed By: LUZ MARIA LOUIE MD 06/27/20 1821 PATIENT NAME: CARTER FERNANDO HISTORY AND PHYSICAL DATE OF : [birth year] REPORT #: [id number] PHYSICIAN: LUZ MARIA LOUIE MD PCP: AGUSTÍN GONCALVES REPORT IS CONFIDENTIAL AND NOT TO BE RELEASED WITHOUT AUTHORIZATION [facility] [address] [facility] [place], [place] [address] Signed cc: DANDRE Reina MD Copies: SAMARIA BENJAMIN MD ~ Electronically Signed By: LUZ MARIA LOUIE MD 06/27/20 1821 PATIENT NAME: CARTER FERNANDO HISTORY AND PHYSICAL DATE OF : [birth year] REPORT #: [id number] PHYSICIAN: LUZ MARIA LOUIE MD PCP: AGUSTÍN GONCALVES REPORT IS CONFIDENTIAL AND NOT TO BE RELEASED WITHOUT AUTHORIZATION
--- NOTE | 2020-06-27 18:21 | OR ---
[facility] [facility] [address] [place], [place] [address] Signed DATE OF OPERATION: 06/25/2020 SURGEON: Luz Maria Louie MD PREOPERATIVE DIAGNOSIS: Acute calculous cholecystitis with hydropic gallbladder. POSTOP DIAGNOSIS: Acute calculous cholecystitis with hydropic gallbladder. PROCEDURES: 1. Laparoscopic cholecystectomy with intraoperative cholangiogram. 2. Surgeon-directed fluoroscopy. ANESTHESIA: General endotracheal; Debra Ellis CRNA and Toño Navarrete CRNA and local 20 mL of 0.25% Marcaine with epinephrine. INDICATIONS: This 19-year-old overweight white woman presented to the emergency room last night, was evaluated by Dr. Benjamin with complaints of severe right upper abdominal pain. She has had similar symptoms in the past. An ultrasound was performed confirming gallstones. Review of her chart shows she has had CT scan previously confirming gallstones as well. She has been fluid resuscitated given intravenous antibiotics, and now to undergo cholecystectomy by laparoscopic method. The risks of bleeding, infection, bile duct injury, need for open procedure, and so forth was reviewed with her in detail. She understands and wished to proceed. FINDINGS: The gallbladder had a fair number of filmy adhesions over the surface which took a fair amount of time to free, but the gallbladder anatomy was ultimately found to be conventional. The liver was normal. Cholangiogram was normal. The gallbladder once excised showed two moderate-sized mulberry yellow gallstones. DESCRIPTION OF PROCEDURE: The patient was brought to the operating room, given a general endotracheal anesthetic. Preoperative antibiotic Ancef had been given. Sequential compression device stockings used and heparin subcutaneously administered. After satisfactory anesthesia, the abdomen was prepared with a chlorhexidine solution and draped sterilely. An infraumbilical incision was made and using an open Sharon cannula technique Electronically Signed By: LUZ MARIA LOUIE MD 06/27/20 1821 PATIENT NAME: CARTER FERNANDO OPERATIVE REPORT DATE OF : [birth year] REPORT #: [id number] PHYSICIAN: LUZ MARIA LOUIE MD PCP: AGUSTÍN GONCALVES REPORT IS CONFIDENTIAL AND NOT TO BE RELEASED WITHOUT AUTHORIZATION [facility] [address] [place], [place] [address] Signed pneumoperitoneum was achieved to a level of 14 mmHg of carbon dioxide gas. Intraabdominal inspection showed the liver to be normal. There was no sign of ascites or carcinomatosis. The gallbladder was obscured from view. Three additional trocars were placed in usual configuration in the subxiphoid, right midclavicular, and right anterior axillary line. Gallbladder tip was ultimately identified, elevated, and filmy adhesions to the undersurface of the gallbladder and not far from the right transverse colon were noted. Minimizing as much as possible use of electrocautery, the adhesions were taken down allowing for better elevation of the gallbladder. Filmy adhesions were also noted in the infundibulum with blunt electrocautery dissection, this infundibulum was dissected free and with meticulous care, the cystic duct dissected free demonstrating well the triangle of Calot. Cystic arterial branch was identified, later clipped and divided. The cystic duct was well identified with the use of the critical view of safety, allow for application of the clip to the gallbladder cystic duct junction. A transverse choledochotomy was made in the cystic duct. Retrograde milking of the duct showed bile, but no sign of stone or debris. Using an Webber type cholangiocatheter system, intraoperative cholangiography was undertaken showing free flow of contrast in biliary tree with prompt emptying into the duodenum. Anatomy was conventional. Cystic duct was relatively long. The catheter was removed, and the cystic duct was triply clipped and divided. The gallbladder dissected free in a retrograde fashion without entry into the gallbladder. The gallbladder was extracted through the infraumbilical port site, opened on the back table and found to have two yellow 1.5 cm mulberry stones. The mucosa was chronically and subacutely inflamed. There was no sign of neoplasm. Irrigation was undertaken in subhepatic space with no sign of bile leak, bleeding, or other problems. Excess irrigation fluid was suctioned free. Removal of the trocars including the right midclavicular and right anterior axillary line showed a small amount of oozing, for which cautery was effective in securing hemostasis. Once hemostasis was considered complete, pneumoperitoneum was relieved. The infraumbilical trocar removed and the infraumbilical fascial incision reapproximated with interrupted 0-Vicryl suture. All wounds were copiously irrigated with saline solution and 20 mL of 0.25% Marcaine with epinephrine was injected locally for postoperative analgesic benefit. The skin was then closed with interrupted 3-0 Vicryl. Steri-Strips were applied. The patient was extubated and anticipating transfer to the recovery room in good condition. ESTIMATED BLOOD LOSS: Minimal. COMPLICATIONS: None. Electronically Signed By: LUZ MARIA LOUIE MD 06/27/20 1821 PATIENT NAME: CARTER FERNANDO OPERATIVE REPORT DATE OF : [birth year] REPORT #: [id number] PHYSICIAN: LUZ MARIA LOUIE MD PCP: AGUSTÍN GONCALVES REPORT IS CONFIDENTIAL AND NOT TO BE RELEASED WITHOUT AUTHORIZATION [address] [place], [place] [address] Signed MD PRATIBHA Sarabia/MODL /[id number] cc: Samaria Benjamin MD Copies: SAMARIA BENJAMIN MD ~ Electronically Signed By: LUZ MARIA LOUIE MD 06/27/201820 PATIENT NAME: CARTER FERNANDO HERLINDA OPERATIVE REPORT DATE OF : [birth year] REPORT #: [id number] PHYSICIAN: LUZ MARIA LOUIE MD PCP: AGUSTÍN GONCALVES REPORT IS CONFIDENTIAL AND NOT TO BE RELEASED WITHOUT AUTHORIZATION
--- NOTE | 2020-06-27 18:42 | PATH ---
[facility] [address] [place], [place] [address] Signed ORDERING PHYSICIAN: Acacia Espino MD PATIENT NAME: CARTER FERNANDO GENDER: F : 2000 Prior History: No cases found. SPECIMEN(S): MOLECULAR PATHOLOGY RESULTS: SARS-CoV-2 Not Detected ADDITIONAL NOTES.: The [place] Fusion SARS-CoV-2 Assay is a multiplex real-time PCR (RT-PCR) in vitro diagnostic test intended for the qualitative detection of RNA from SARS-CoV-2 from individuals who meet COVID-19 clinical and/or epidemiological criteria. In general, SARS-CoV-2 RNA can be detected during the acute phase of infection. Positive results indicate the presence of SARS-CoV-2 RNA. Clinical correlation with patient history and other diagnostic information is necessary to determine patient infection status. Positive results do not rule out bacterial infection or co-infection with other viruses. Negative results do not preclude SARS-CoV-2 infection and should not be used as the sole basis for patient management decisions. Negative results must be combined with other clinical observations, patient history, and epidemiological information. The [place] Fusion SARS-CoV-2 Assay is not yet approved or cleared by the [place] FDA. When there are no FDA-approved or cleared tests available, and other criteria are met, FDA can make tests available under an emergency access mechanism called an Emergency Use Authorization (EUA). The EUA for this test is supported by the Nursing Surgical Services Director of Health and Human Service's (HHS's) declaration that circumstances exist to justify the emergency use of in vitro diagnostics for the detection and/or diagnosis of the virus that causes COVID-19. This EUA will remain in effect for the duration of the COVID-19 declaration justifying emergency of IVDs, unless it is terminated or revoked by FDA, after which the test may no longer be used. The [place] Fusion SARS-CoV-2 Assay is for use only under EUA PATIENT NAME: CARTER FERNANDO PATHOLOGY DATE OF : [birth year] REPORT #: [id number] PHYSICIAN: JACINTO AMADO PCP: AGUSTÍN GONCALVES REPORT IS CONFIDENTIAL AND NOT TO BE RELEASED WITHOUT AUTHORIZATION [facility] [address] [place] [id number] Signed in laboratories certified under the Clinical Laboratory Improvement Amendments of 1988 (CLIA) to perform high complexity tests. [facility] is certified under CLIA to perform high complexity clinical laboratory testing. PERFORMING LABORATORY.: Molecular testing was performed by [facility] [place] [address] (Automatic Bow Maker Machine Tender: Luis Ellis D.O.; CLIA#: [id number]) Diagnostician: System Interface Pathologist Electronically Signed 06/27/2020 Copies: ~ PATIENT NAME: GAEDECARTER PATHOLOGY DATE OF : [birth year] REPORT #: [id number] PHYSICIAN: JACINTO AMADO PCP: AGUSTÍN GONCALVES REPORT IS CONFIDENTIAL AND NOT TO BE RELEASED WITHOUT AUTHORIZATION
--- NOTE | 2020-06-27 19:23 | NUR ---
SHIFT REPORT RECEIVED FROM SHIREEN GLOVER. PT IN THE SHOWER, FAMILY HELPING HER. NO OTHER NEEDS AT THIS TIME. CALL LIGHT IN REACH.
--- NOTE | 2020-06-27 19:45 | NUR ---
pt called, bk from shower, uncovered iv site, informed rn pt ready to get iv line hooked up, reheated pt dinner per request, no further needs at this time
--- NOTE | 2020-06-27 20:33 | NUR ---
ASSESSMENT, VS AND I&O COMPLETED. PT DECLINES HEPARIN INJECTION, SCDs ON. PT EDUCATED TO WALK HALLS. ABD PAIN 6/10, MOTRIN PROVIDED. GCS 15, A&O X4. LUNGS CLEAR, HEART TONES REGULAR. ABD SOFT, TENDER, MILDLY DISTENDED. CMS INTACT X4 EXTREMITIES. INCISIONS WNL, NO DRAINAGE, COVERED WITH STERI STRIPS. IV WNL, CDI, FLUSHED WELL. NEW BAG IV FLUIDS PROVIDED. FRIEND IN ROOM. NO OTHER NEEDS AT THIS TIME. CALL LIGHT IN REACH.
--- NOTE | 2020-06-27 21:13 | NUR ---
pt used call light to ask for assistance. S/O tried to assit pt to restroom, IV pump was plugged in, was unsure of how to unplug pump. pt in restroom and asked to use call light when finished.
--- NOTE | 2020-06-27 23:44 | NUR ---
PT UP TO WALK HALLS, TOLERATED WELL. PAIN 8/10 IN RUQ, PRN PAIN MED PROVIDED. ICE CREAM PROVIDED. NO OTHER NEEDS AT THIS TIME. CALL LIGHT IN REACH.
--- NOTE | 2020-06-28 00:53 | NUR ---
PT AWAKE IN ROOM. ABD PAIN 10/23, DENIES NEED FOR FURTHER INTERVENTION. FRIEND IN ROOM. NO NEEDS, CALL LIGHT IN REACH.
--- NOTE | 2020-06-28 01:08 | NUR ---
in to check on pt scds, confirmed placment, no further needs at this time
--- NOTE | 2020-06-28 03:12 | NUR ---
ASSESSMENT COMPLETED. PT ABD PAIN /, PRN PAIN MED PROVIDED. PT STATES PAIN IS "ANNOYING". GCS 15, A&O X4. LUNGS CLEAR. HEART TONES REGULAR. IV WNL. ABD SOFT, TENDER, BOWEL TONES ACTIVE. INCISIONS WNL, PT STATES SHE HAS TINGLING AROUND UMBILICUS INCISION. CMS INTACT. IV FLUIDS INFUSING PER ORDER. SCDs ON. FRIEND AND DOG IN ROOM. NO OTHER NEEDS AT THIS TIME. CALL LIGHT IN REACH.
--- NOTE | 2020-06-28 05:00 | NUR ---
PT SLEPT OFF AND ON THIS SHIFT. PT WALKED HALLS, TOLERATED WELL. PAIN WELL MANAGED WITH PRN MEDS. INCISIONS WNL, DRY. ABD SOFT, TENDER, PT STATES MILDLY DISTENDED. PT HAS NOT HAD A BM BUT REPORTS PASSING GAS. PT TOLERATED MEALS, SNACKS AND ORAL FLUIDS WELL. IV WNL, FLUSHED WELL, PT TOLERATED IV FLUIDS WELL. FAMILY AND DOG IN ROOM. UOS. VSS.
--- NOTE | 2020-06-28 05:58 | NUR ---
PT RESTING IN BED, EYES CLOSED. RR EVEN, UNLABORED. IV FLUIDS INFUSING PER ORDER. CALL LIGHT IN REACH. FAMILY AND DOG IN ROOM.
--- NOTE | 2020-06-28 07:05 | NUR ---
REPORT RECIEVED FROM ADALBERTO SOLANO. pt APPEARS TO BE SLEEPING, RESTING IN BED WITH EYES CLOSED. BREATHING EQUAL AND UNLABORED. LIGHTS OFF IN ROOM.
--- NOTE | 2020-06-28 08:01 | NUR ---
pt REQUESTING SCDS OFF AT THIS TIME. BREAK PROVIDED. SBA TO RESTROOM FOR 850 ML VOID AND BACK TO BED. ASSESSMENT COMPLETE. BOWEL TONES ACTIVE, ABDOMEN SOFT. pt RATES PAIN 6.5/10. PRN ACETAMINOPHEN ADMINISTERED. SCHEDULED MEDICATIONS ADMINISTERED. IVF INFUSING WNL ORDERED. CALL LIGHT IN REACH. ICE WATER PROVIDED. pt REQUESTING TO REST AT THIS TIME. PLAN FOR AMBULATION TODAY IN HALLWAY.
--- NOTE | 2020-06-28 09:00 | NUR ---
PATIENT RESTING WITH EYES CLOSED, FAMILY IN ROOM. VITALS AND I&OS CHARTED. PATIENT PRETTY UPSET THIS EMERGENCY MEDICINE PHYSICIAN WAS UNAWARE PATIENT WAS PLANNING ON SLEEPING 1MORE HOUR. REFUSES TO ORDER BREAKFAST OR EVEN SPEAK. SBA TO BR. WILL CALL IF ASSISTANCE IS NEEDED.
[2020-06-28] MEDS ORDERED: IBUPROFEN600 MG PO (09:01)
--- NOTE | 2020-06-28 09:01 | NUR ---
IN pt ROOM DISCUSSING DISCHARGE PLAN. pt DROWSY, AGREEABLE. REFUSING TO WAKE UP AT THIS TIME, REQUESTING ONE MORE HOUR SLEEP. DEV AUGUSTIN IN ROOM TO GET pt'S BREAKFAST ORDER.
[2020-06-28] MEDS ORDERED: HYDROCODON-ACE1 EA10 PO (09:02)
[2020-06-28] MEDS ORDERED: ACETAMINOPHEN500 MG PO (09:02)
--- NOTE | 2020-06-28 10:07 | NUR ---
WRITTEN AND VERBAL DISCHARGE INSTRUCTION PROVIDED TO pt. IV D/C'D WNL, CATHETER INTACT. PRN PAIN MEDICATION ADMINISTERED FOR 5.5-6/10 PAIN IN ABDOMEN. pt DENIES ADDITIONAL REQUESTS. SITTING UP EATING BREAKFAST, PHONE CALL TO FRIEND FOR RIDE HOME.
--- NOTE | 2020-06-29 10:36 | DS ---
[facility] [address] [place], [place] [address] Signed ADMISSION DATE: 06/25/2020 DISCHARGE DATE: 06/28/2020 REASON FOR ADMISSION: This 19-year-old white woman, who presented to the emergency room in the late night and evaluated by Dr. Benjamin with complaints of severe right upper abdominal pain. She has had similar symptoms in the past. An ultrasound performed, confirmed gallstones and findings consist of acute cholecystitis. She was admitted for further evaluation and care. PERTINENT PHYSICAL EXAMINATION: GENERAL: An obese white woman, who was somewhat somnolent in her overall interactions. HEENT: Mucous membranes were moist. Trachea midline. CHEST: Clear. HEART: Regular. ABDOMEN: Tenderness in the right upper abdomen. HOSPITAL COURSE: She was admitted, given intravenous antibiotics, parenteral pain medication, IV fluids and so forth. She was promptly taken to operation after full informed consent as to the risks of operation and underwent laparoscopic cholecystectomy on June 26. She was noted to have a hydropic gallbladder with gallstones and acute inflammation, the cholangiogram was normal. Operation went without problem. Postoperatively, she had a fair amount of incisional pain and some anxiety. She has underlying PTSD. She had progressive improvement, ultimately was discharged on June 28, 2020. She is tolerating a regular diet, ambulating without problem. Wounds are healing well and lab tests that were performed showed no evidence of anemia or adverse findings otherwise. FOLLOWUP PLANS: She is return to see me in approximately 4 weeks. She will call on Wednesday for an appointment. She will continue with her usual medications of sertraline. She is advised to lift no more than 20 pounds for the next 2 weeks. She is permitted to shower. She should walk on a daily basis to avoid blood clots. DISCHARGE MEDICATIONS: 1. Motrin 600 mg p.o. q.6 hours p.r.n. pain #30. 2. [place] 5/325 one p.o. q.4 hours as needed for pain #10. 3. Tylenol 500 mg two tablets p.o. q.6 hours as needed for pain #60. 4. She will resume her usual medication of sertraline 50 mg p.o. at bedtime, omeprazole Electronically Signed By: LUZ MARIA LOUIE MD 06/29/20 1036 PATIENT NAME: CARTER FERNANDO DISCHARGE SUMMARY DATE OF : [birth year] REPORT #: [id number] PHYSICIAN: LUZ MARIA LOUIE MD PCP: AGUSTÍN GONCALVES REPORT IS CONFIDENTIAL AND NOT TO BE RELEASED WITHOUT AUTHORIZATION [facility] [address] [place] [id number] Signed 20 mg p.o. daily, and albuterol inhaler two puffs q.6 hours as needed. DISCHARGE DIAGNOSES: 1. Acute calculous cholecystitis, status post laparoscopic cholecystectomy with intraoperative cholangiogram. 2. Obesity. 3. Post-traumatic stress disorder, self-described. 4. Reflux disease. 5. Reactive airway. MD PRATIBHA Sarabia/ANNEL /[id number] cc: DANDRE Reina MD Copies: SAMARIA BENJAMIN MD ~ Electronically Signed By: LUZ MARIA LOUIE MD 06/29/20 1036 PATIENT NAME: CARTER FERNANDO HERLINDA DISCHARGE SUMMARY DATE OF : [birth year] REPORT #: [id number] PHYSICIAN: LUZ MARIA LOUIE MD PCP: AGUSTÍN GONCALVES REPORT IS CONFIDENTIAL AND NOT TO BE RELEASED WITHOUT AUTHORIZATION
== END 2020-06-28 10:32 | disposition home or self-care (01) ==
LOC: ED 20:59 → MS 21:01
PROVIDERS: ADMIT Surgery; ATTEND Surgery
PROC: 0FT44ZZ Resection of Gallbladder, Percutaneous Endoscopic Approach (ICD-10-PCS; principal; 2020-06-25)
PROC: BF13YZZ Fluoroscopy of Gallbladder and Bile Ducts using Other Contrast (ICD-10-PCS; 2020-06-25)
DX: K80.12 Calculus of gallbladder with acute and chronic cholecystitis without obstruction (principal); K82.1 Hydrops of gallbladder; E66.9 Obesity, unspecified; F43.10 Post-traumatic stress disorder, unspecified; K21.9 Gastro-esophageal reflux disease without esophagitis; J45.909 Unspecified asthma, uncomplicated; F31.9 Bipolar disorder, unspecified; Z87.11 Personal history of peptic ulcer disease; Z88.0 Allergy status to penicillin; Z91.030 Bee allergy status; Z88.1 Allergy status to other antibiotic agents; Z88.5 Allergy status to narcotic agent; Z91.018 Allergy to other foods; Z91.048 Other nonmedicinal substance allergy status; Z79.899 Other long term (current) drug therapy; Z68.32 Body mass index [BMI] 32.0-32.9, adult; Z20.828 Contact with and (suspected) exposure to other viral communicable diseases
CPT/HCPCS: 00790; 36415; 74300; 76705; 80053; 81001; 82247; 82465; 83615; 83690; 84100; 84478; 84550; 84703; 85025; 88304; 94762; 96372; 96374; 96375; 96376; 99285-25; A9270; C9803; G0378; J0690; J1100; J1170; J1644; J1885; J2001; J2405; J2704; J3010; J7030; J7121; Q9967; U0003

== ENCOUNTER 2020-12-26 21:21 | Emergency (ER) | payer OTHER ==
[~2020-12-26] VITALS: Ht 157.5 cm; Wt 80.3 kg
[~2020-12-26 21:21] MED LIST changes: +ACETAMINOPHEN500 MG PO; +HYDROCODON-ACE1 EA10 PO; +OMEPRAZOLE20 MG PO; +SERTRALINE HCL50 MG PO
[2020-12-26] MEDS ORDERED: VENTOLIN HFA18 GM INH (21:53)
[2020-12-26] MEDS ORDERED: OMEPRAZOLE20 MG PO (21:53)
== END 2020-12-26 23:02 | disposition home or self-care (01) ==
LOC: ED 21:21
DX: R42 Dizziness and giddiness (principal); R11.0 Nausea; J45.909 Unspecified asthma, uncomplicated; Z88.0 Allergy status to penicillin; Z91.030 Bee allergy status; Z88.1 Allergy status to other antibiotic agents; Z88.5 Allergy status to narcotic agent; Z79.899 Other long term (current) drug therapy
CPT/HCPCS: 84703; 99284

== ENCOUNTER 2021-01-28 11:39 | Emergency (ER) | payer OTHER ==
[~2021-01-28] VITALS: Ht 157.5 cm; Wt 74.8 kg
[2021-01-28] MEDS ORDERED: HYDROCODON-ACE1 EA10 PO (16:46)
[2021-01-28] MEDS ORDERED: CRUTCH1 EACH MISC (16:58)
== END 2021-01-28 17:00 | disposition home or self-care (01) ==
LOC: ED 11:39
DX: S83.92XA Sprain of unspecified site of left knee, initial encounter (principal); W22.8XXA Striking against or struck by other objects, initial encounter; J45.909 Unspecified asthma, uncomplicated; F43.10 Post-traumatic stress disorder, unspecified; Z88.0 Allergy status to penicillin; Z88.1 Allergy status to other antibiotic agents; Z88.5 Allergy status to narcotic agent; Z91.030 Bee allergy status; Z79.899 Other long term (current) drug therapy
CPT/HCPCS: 73560; 84703; 99283-25; A9270

== ENCOUNTER 2021-01-30 21:27 | Emergency (ER) | payer OTHER ==
[~2021-01-30] VITALS: Ht 157.5 cm; Wt 69.8 kg
[~2021-01-30 21:27] MED LIST changes: +CRUTCH1 EACH MISC
[2021-01-30] MEDS ORDERED: BUPROPION XL150 MG PO (22:31)
[2021-01-30] MEDS ORDERED: EUTHYROX25 MCG PO (22:31)
== END 2021-01-31 01:40 | disposition home or self-care (01) ==
LOC: ED 21:27
DX: S61.012A Laceration without foreign body of left thumb without damage to nail, initial encounter (principal); Z23 Encounter for immunization; W26.0XXA Contact with knife, initial encounter; J45.909 Unspecified asthma, uncomplicated; Z88.0 Allergy status to penicillin; Z91.030 Bee allergy status; Z88.1 Allergy status to other antibiotic agents; Z88.5 Allergy status to narcotic agent; Z79.899 Other long term (current) drug therapy
CPT/HCPCS: 12001; 90471; 90715; 99282-25

== ENCOUNTER 2021-04-13 11:13 | Emergency (ER) | payer OTHER ==
[~2021-04-13] VITALS: Ht 157.5 cm; Wt 79.4 kg
[~2021-04-13 11:13] MED LIST changes: +BUPROPION XL150 MG PO; +EUTHYROX25 MCG PO
[2021-04-13] MEDS ORDERED: PERCOCET 5-3251 EACH PO (14:29)
== END 2021-04-13 14:44 | disposition home or self-care (01) ==
LOC: ED 11:13
DX: M79.605 Pain in left leg (principal); J45.909 Unspecified asthma, uncomplicated; F43.10 Post-traumatic stress disorder, unspecified; Z88.0 Allergy status to penicillin; Z88.5 Allergy status to narcotic agent; Z88.1 Allergy status to other antibiotic agents; Z91.030 Bee allergy status; Z79.899 Other long term (current) drug therapy
CPT/HCPCS: 73560; 84703; 93971; 99284-25

== ENCOUNTER 2021-04-22 11:22 | Emergency (ER) | payer OTHER ==
[~2021-04-22] VITALS: Ht 157.5 cm; Wt 77.1 kg
[~2021-04-22 11:22] MED LIST changes: +PERCOCET 5-3251 EACH PO
[2021-04-22] MEDS ORDERED: PREDNISONE20 MG PO (14:00)
== END 2021-04-22 14:18 | disposition home or self-care (01) ==
LOC: ED 11:22
DX: J04.0 Acute laryngitis (principal); Z20.822 Contact with and (suspected) exposure to COVID-19; J45.909 Unspecified asthma, uncomplicated; F43.10 Post-traumatic stress disorder, unspecified; Z88.0 Allergy status to penicillin; Z88.1 Allergy status to other antibiotic agents; Z88.5 Allergy status to narcotic agent; Z91.030 Bee allergy status; Z79.899 Other long term (current) drug therapy
CPT/HCPCS: 71045; 99283-25; J1100; U0003

== ENCOUNTER 2021-09-15 14:23 | Emergency (ER) | payer OTHER ==
[~2021-09-15] VITALS: Ht 157.5 cm; Wt 75.5 kg
[~2021-09-15 14:23] MED LIST changes: +PREDNISONE20 MG PO
[2021-09-15] MEDS ORDERED: ONDANSETRON ODT4 MG SL (17:28)
== END 2021-09-15 18:04 | disposition home or self-care (01) ==
LOC: ED 14:23
DX: O21.0 Mild hyperemesis gravidarum (principal); O99.511 Diseases of the respiratory system complicating pregnancy, first trimester; J45.909 Unspecified asthma, uncomplicated; Z88.0 Allergy status to penicillin; Z88.1 Allergy status to other antibiotic agents; Z88.5 Allergy status to narcotic agent; Z91.030 Bee allergy status; Z3A.12 12 weeks gestation of pregnancy
CPT/HCPCS: 36415; 76801; 81001; 84702; 86900; 96374; 99284-25; J2405; J7030

== ENCOUNTER 2021-10-31 01:12 | Emergency (ER) | payer OTHER ==
[~2021-10-31] VITALS: Ht 157.5 cm; Wt 73.0 kg
[~2021-10-31 01:12] MED LIST changes: +ONDANSETRON ODT4 MG SL
[2021-10-31] MEDS ORDERED: PROMETHAZINE HC25 MG PR (02:52)
== END 2021-10-31 03:43 | disposition home or self-care (01) ==
LOC: ED 01:12
DX: O21.0 Mild hyperemesis gravidarum (principal); O36.5120 Maternal care for known or suspected placental insufficiency, second trimester, not applicable or unspecified; Z3A.19 19 weeks gestation of pregnancy; O99.512 Diseases of the respiratory system complicating pregnancy, second trimester; J45.909 Unspecified asthma, uncomplicated; Z88.0 Allergy status to penicillin; Z88.5 Allergy status to narcotic agent; Z88.1 Allergy status to other antibiotic agents; Z91.030 Bee allergy status
CPT/HCPCS: 36415; 76815; 76817; 80048; 81001; 84702; 85025; 87491; 96374; 99284-25; A9270; J2405; J7030

== ENCOUNTER 2022-08-16 18:15 | Emergency (ER) | payer OTHER ==
[~2022-08-16] VITALS: Ht 157.5 cm; Wt 63.5 kg
[~2022-08-16 18:15] MED LIST changes: +PROMETHAZINE HC25 MG PR
[2022-08-16] MEDS ORDERED: ACYCLOVIR200 MG (23:25)
[2022-08-17] MEDS ORDERED: MACROBID 100 M100 MG PO (01:12)
== END 2022-08-17 03:20 | disposition home or self-care (01) ==
LOC: ED 18:15
DX: N92.0 Excessive and frequent menstruation with regular cycle (principal); N39.0 Urinary tract infection, site not specified; J45.909 Unspecified asthma, uncomplicated; Z88.0 Allergy status to penicillin; Z88.1 Allergy status to other antibiotic agents; Z88.5 Allergy status to narcotic agent; Z91.030 Bee allergy status; Z79.899 Other long term (current) drug therapy
CPT/HCPCS: 36415; 76830; 76856; 80053; 81001; 84703; 85025; 85610; 86850; 86900; 86901; 96374; 99284-25; J2405; J7121

== ENCOUNTER 2022-09-09 21:59 | Emergency (ER) | payer OTHER ==
[~2022-09-09] VITALS: Ht 157.5 cm; Wt 66.3 kg
[~2022-09-09 21:59] MED LIST changes: +ACYCLOVIR200 MG; +MACROBID 100 M100 MG PO
== END 2022-09-10 02:02 | disposition home or self-care (01) ==
LOC: ED 21:59
DX: O98.511 Other viral diseases complicating pregnancy, first trimester (principal); B34.9 Viral infection, unspecified; O99.511 Diseases of the respiratory system complicating pregnancy, first trimester; J45.909 Unspecified asthma, uncomplicated; Z20.822 Contact with and (suspected) exposure to COVID-19; Z91.030 Bee allergy status; Z88.1 Allergy status to other antibiotic agents; Z88.0 Allergy status to penicillin; Z88.5 Allergy status to narcotic agent; Z88.8 Allergy status to other drugs, medicaments and biological substances; Z79.899 Other long term (current) drug therapy; Z3A.01 Less than 8 weeks gestation of pregnancy
CPT/HCPCS: 36415; 76801; 76817; 80053; 81001; 84702; 85025; 87502; 99284-25; A9270; U0003

== ENCOUNTER 2022-11-12 15:11 | Emergency (ER) | payer OTHER ==
[~2022-11-12] VITALS: Ht 157.5 cm; Wt 62.5 kg
[2022-11-12] MEDS ORDERED: ONDANSETRON HCL4 MG PO (15:44)
== END 2022-11-12 15:55 | disposition home or self-care (01) ==
LOC: ED 15:11
DX: O99.512 Diseases of the respiratory system complicating pregnancy, second trimester (principal); J06.9 Acute upper respiratory infection, unspecified; O21.9 Vomiting of pregnancy, unspecified; Z3A.14 14 weeks gestation of pregnancy; Z88.0 Allergy status to penicillin; Z88.5 Allergy status to narcotic agent; Z91.030 Bee allergy status
CPT/HCPCS: 99283

== ENCOUNTER 2023-08-17 15:02 | Emergency (ER) | payer OTHER ==
[~2023-08-17] VITALS: Ht 157.5 cm; Wt 62.1 kg
[~2023-08-17 15:02] MED LIST changes: +ONDANSETRON HCL4 MG PO
[2023-08-17] MEDS ORDERED: HYDROXYZINE HCL25 MG (17:28)
[2023-08-17 17:56] LABS: INFLUENZA B NAA NEGATIVE (NEGATIVE); RESPIRATORY SYNCYTIAL VIR NAA NEGATIVE (NEGATIVE)
[2023-08-17 19:08] LABS: BASOPHILS 0.9 % (0-2); EOSINOPHILS 1.3 % (0-6); HEMATOCRIT 31.9 % (35.0-50.0); HEMOGLOBIN 10.7 g/dL (12.0-18.0); LYMPHOCYTES 29.5 % (24-44); MCH 25.6 (27-36); MCHC 33.7 g/dl (30-36); MONOCYTES 8.4 % (0-12); NEUTROPHILS 59.9 % (39-80); PLATELET COUNT 173 K/uL (140-440); RDW 14.2 (10.5-15.0)
[2023-08-17 19:18] LABS: ALBUMIN 3.3 g/dL (3.4-5.0); ALBUMIN/GLOBULIN RATIO 0.8 (1.1-2.4); ANION GAP 9.7 (7-21); BILIRUBIN, TOTAL 0.4 ng/dL (0.2-1.0); BUN/CREATININE RATIO 10.29 (6.0-28.6); CALCIUM 8.9 mg/dL (8.5-10.1); CREATININE, SERUM 0.68 mg/dL (0.55-1.02); MAGNESIUM 1.8 mg/dL (1.8-2.4); POTASSIUM 3.7 mmol/L (3.5-5.1); PROTEIN, TOTAL 7.4 g/dL (6.4-8.2)
[2023-08-17 19:36] LABS: BILIRUBIN, URINE NEGATIVE (negative); BLOOD/HGB, URINE SMALL (Negative); KETONE, URINE NEGATIVE (Negative); LEUK ESTERASE, URINE NEGATIVE (negative); NITRITE, URINE NEGATIVE (negative); PH, URINE 5.5 (5-7)
[2023-08-17 19:43] LABS: BACTERIA, URINE RARE /hpf (negative); CASTS, URINE NONE SEEN \\lpf; COLLECTION TYPE, URINE CLEAN CATCH; CRYSTALS, URINE NONE SEEN (0-1+); EPITHELIAL CELLS, URINE SQUAMOUS 3+ /lpf (0-1+); REFLEX CULTURE, URINE No (No)
[2023-08-17 20:15] VITALS: BP 98/50
== END 2023-08-17 20:15 | disposition home or self-care (01) ==
LOC: ED 15:02
PROVIDERS: Emergency Medicine
DX: J98.9 Respiratory disorder, unspecified (principal); B97.89 Other viral agents as the cause of diseases classified elsewhere; Z88.0 Allergy status to penicillin; Z88.1 Allergy status to other antibiotic agents; Z88.5 Allergy status to narcotic agent; Z91.030 Bee allergy status; Z11.52 Encounter for screening for COVID-19
CPT/HCPCS: 36415; 80053; 81001; 83735; 84703; 85025; 87502; C9803; J7030; U0002

== ENCOUNTER 2024-10-03 06:16 | Emergency (ER) | payer OTHER ==
[~2024-10-03] VITALS: Ht 157.5 cm; Wt 70.8 kg
[~2024-10-03 06:16] MED LIST changes: +HYDROXYZINE HCL25 MG; +ONDANSETRON ODT4 MG PO; +ONDANSETRON ODT8 MG SL; +SUCRALFATE1 GM PO
[2024-10-03 06:53] LABS: BASOPHILS 0.1 % (0-2); EOSINOPHILS 0.2 % (0-6); HEMATOCRIT 27.8 % (35.0-50.0); HEMOGLOBIN 9.1 g/dL (12.0-18.0); LYMPHOCYTES 5.8 % (24-44); MCH 21.7 (27-36); MCHC 32.6 g/dl (30-36); MCV 66.4 fl (81-99); MONOCYTES 3.3 % (0-12); NEUTROPHILS 90.6 % (39-80); PLATELET COUNT 172 K/uL (140-440); RBC 4.18 M/ul (4.3-5.7)
[2024-10-03] MEDS ORDERED: SODIUM CHLORIDE 0.9% 1,000 ML IV ONE (07:00)
[2024-10-03] MEDS ORDERED: ondansetron HCL 4 MG/2 ML VIAL IV ONE ×2 (07:00→09:00)
[2024-10-03 07:02] LABS: ALBUMIN 2.9 g/dL (3.4-5.0); ALBUMIN/GLOBULIN RATIO 0.6 (1.1-2.4); ANION GAP 18.6 (7-21); BUN/CREATININE RATIO 22.64 (6.0-28.6); CALCIUM 9.2 mg/dL (8.5-10.1); CREATININE, SERUM 0.53 mg/dL (0.55-1.02); MAGNESIUM 1.4 mg/dL (1.8-2.4); POTASSIUM 3.6 mmol/L (3.5-5.1); PROTEIN, TOTAL 7.7 g/dL (6.4-8.2)
[2024-10-03] MEDS ORDERED: MAGNESIUM SULFATE 2 GM/50 ML BAG IV ONE (07:15)
[2024-10-03 07:36] LABS: INFLUENZA B NAA NEGATIVE (NEGATIVE); RESPIRATORY SYNCYTIAL VIR NAA NEGATIVE (NEGATIVE)
[2024-10-03] MEDS ORDERED: SODIUM CHLORIDE 0.9% 1,000 ML IV PRN (07:45)
[2024-10-03] MEDS ORDERED: MAGNESIUM HYDROXIDE/AL HYDROX 30 ML CUP PO ONE (09:00)
[2024-10-03 09:39] LABS: BILIRUBIN, URINE NEGATIVE (negative); BLOOD/HGB, URINE NEGATIVE (Negative); KETONE, URINE >=80 (Negative); LEUK ESTERASE, URINE NEGATIVE (negative); NITRITE, URINE NEGATIVE (negative)
[2024-10-03] MEDS ORDERED: droPERidol 5 MG/2 ML VIAL IV ONE (10:15)
[2024-10-03] MEDS ORDERED: PROMETHAZINE HC25 MG PR (11:44)
[2024-10-03 11:58] VITALS: BP 108/69
== END 2024-10-03 11:58 | disposition home or self-care (01) ==
LOC: ED 06:16
PROVIDERS: Family Medicine
DX: O99.613 Diseases of the digestive system complicating pregnancy, third trimester (principal); K52.9 Noninfective gastroenteritis and colitis, unspecified; O99.283 Endocrine, nutritional and metabolic diseases complicating pregnancy, third trimester; E86.0 Dehydration; E83.42 Hypomagnesemia; O99.013 Anemia complicating pregnancy, third trimester; D64.9 Anemia, unspecified; O99.513 Diseases of the respiratory system complicating pregnancy, third trimester; J45.909 Unspecified asthma, uncomplicated; Z3A.30 30 weeks gestation of pregnancy; Z88.0 Allergy status to penicillin; Z88.1 Allergy status to other antibiotic agents; Z88.5 Allergy status to narcotic agent; Z91.030 Bee allergy status; Z91.018 Allergy to other foods; Z91.048 Other nonmedicinal substance allergy status; Z79.899 Other long term (current) drug therapy
CPT/HCPCS: 36415; 59025; 80053; 81003; 83735; 85025; 85060; 87502; 96361; 96365; 96375; 96376; 99284-25; A9270; J1790; J2405; J3475; J7030; U0002